=== PATIENT | female | born 1965 | race Caucasian/White ===

== ENCOUNTER 2017-02-21 11:42 | Observation (INO) | payer OTHER ==
[2017-02-21] MEDS ORDERED: NORMAL SALINE 1000 ML 1,000 ML IV ONE (11:59)
--- NOTE | 2017-02-21 12:00 | ER Document Report ---
ED Medical Screen (RME) - General Chief Complaint: Cough Stated Complaint: FEVER/COUGH Time Seen by Provider: 02/21/17 11:59 Notes: Patient is referred from primary doctor's office. Patient had an x-ray at the primary's office which shows bilateral infiltrates. This is patient's fourth episode of pneumonia this year. TRAVEL OUTSIDE OF THE [place] IN LAST 30 DAYS: No - Related Data Allergies/Adverse Reactions: No Known Allergies Allergy (Verified 08/14/14 11:26) Past Medical History - Social History Frequency of alcohol use: None Drug Abuse: None - Past Medical History Cardiac Medical History: Reports: Hx Hypercholesterolemia Neurological Medical History: Reports: Hx Migraine Renal/ Medical History: Denies: Hx Peritoneal Dialysis GI Medical History: Reports: Hx Gastroesophageal Reflux Disease Psychiatric Medical History: Reports: Hx Anxiety Past Surgical History: Reports: Hx Cholecystectomy, Hx Gastric Bypass Surgery - about 1984, Hx Hysterectomy, Hx Orthopedic Surgery - right ankle - Immunizations Hx Diphtheria, Pertussis, Tetanus Vaccination: Yes Physical Exam - Vital signs Vitals: Temp Pulse Resp BP Pulse Ox 98.4 F 110 H 16 110/70 95 02/21/17 11:45 02/21/17 11:45 02/21/17 11:45 02/21/17 11:45 02/21/17 11:45 Course - Vital Signs Vital signs: Temp Pulse Resp BP Pulse Ox 98.4 F 110 H 16 110/70 95 02/21/17 11:45 02/21/17 11:45 02/21/17 11:45 02/21/17 11:45 02/21/17 11:45
[2017-02-21 12:39] LABS: HEMATOCRIT 42.9 % (36.0-47.0); HEMOGLOBIN 14.2 g/dL (12.0-15.5); HGB HCT DIFFERENCE -0.3; MEAN CORPUSCULAR HEMOGLOBIN 29.4 pg (27.0-33.4); MEAN CORPUSCULAR VOLUME 89 fl (80-97); RED BLOOD COUNT 4.82 10^6/uL (3.72-5.28); RED CELL DISTRIBUTION WIDTH 14.4 % (11.5-14.0); WHITE BLOOD COUNT 20.7 10^3/uL (4.0-10.5)
[2017-02-21 12:40] LABS: VENOUS BLOOD BASE EXCESS -2.2 mmol/L; VENOUS BLOOD HCO3 20.2 mmol/L (20-32); VENOUS BLOOD PCO2 29.1 mmHg (35-63); VENOUS BLOOD PH 7.46 (7.30-7.42)
[2017-02-21 12:55] LABS: APPEARANCE,URINE SLIGHTLY-CLOUDY; BILIRUBIN,URINE NEGATIVE (NEGATIVE); GLUCOSE, URINE NEGATIVE (NEGATIVE); KETONES,URINE NEGATIVE (NEGATIVE); LEUKOCYTE ESTERASE,URINE NEGATIVE (NEGATIVE); NITRITE,URINE NEGATIVE (NEGATIVE); PROTEIN,URINE 30 mg/dL (NEGATIVE); URINE SPECIFIC GRAVITY 1.014
[2017-02-21 13:00] LABS: ALANINE AMINOTRANSFERASE 48 U/L (9-52); ALBUMIN 4.2 g/dL (3.5-5.0); ALKALINE PHOSPHATASE 77 U/L (38-126); ANION GAP 15 (5-19); ASPARTATE AMINO TRANSFERASE 58 U/L (14-36); BILIRUBIN,DIRECT 0.4 mg/dL (0.0-0.4); BILIRUBIN,TOTAL 0.7 mg/dL (0.2-1.3); BLOOD UREA NITROGEN 11 mg/dL (7-20); CALCIUM 9.8 mg/dL (8.4-10.2); CARBON DIOXIDE 19 mmol/L (22-30); CHLORIDE 110 mmol/L (98-107); CREATININE RESULT 0.83 mg/dL (0.52-1.25); GLUCOSE 95 mg/dL (75-110); POTASSIUM 4.3 mmol/L (3.6-5.0); SODIUM 143.9 mmol/L (137-145); TOTAL PROTEIN 7.6 g/dL (6.3-8.2)
[2017-02-21 13:10] LABS: BAND NEUTROPHILS % (MANUAL) 6 % (3-5); BASOPHILS % (MANUAL) 0 % (0-2); EOSINOPHILS % (MANUAL) 0 % (0-6); LYMPHOCYTES % (MANUAL) 3 % (13-45); RBC MORPHOLOGY COMMENT NORMO-CYTIC/CHROMIC; TOTAL CELLS COUNTED 100
--- NOTE | 2017-02-21 14:14 | ER Document Report ---
ED Respiratory Problem - General Chief Complaint: Cough Stated Complaint: FEVER/COUGH Time Seen by Provider: 02/21/17 11:59 Notes: Patient patient developed a cough with headache and fever and chills yesterday. She went to see her primary care physician today and had an outpatient chest x -ray done which was read as showing bibasilar infiltrates and pneumonia and she was referred here for lab studies and to be admitted to the hospital. Patient has a history of frequent pneumonias, the most recent being in December. She has been coughing with some phlegm production. Nauseated but not vomiting. No diarrhea. No UTI symptoms. TRAVEL OUTSIDE OF THE [place] IN LAST 30 DAYS: No - Related Data Allergies/Adverse Reactions: No Known Allergies Allergy (Verified 08/14/14 11:26) Home Medications: Current Home Medications Albuterol Sulfate [Proair HFA] 2 puff PO Q4HP PRN 02/21/17 [History] Alprazolam [Xanax] 1 mg PO Q8HP PRN 02/21/17 [History] Amitriptyline HCl [Elavil 150 mg Tablet] 1 tab PO QHS 02/21/17 [History] Divalproex Sodium [Divalproex Sodium ER] 500 mg PO QHS 02/21/17 [History] Escitalopram Oxalate [Lexapro] 20 mg PO DAILY 02/21/17 [History] Levalbuterol Tartrate [Levalbuterol Tartrate Hfa] 1 puff IN Q6HP PRN 02/21/17 [ History] Linaclotide [Linzess] 290 mcg PO Q12 02/21/17 [History] Pantoprazole Sodium [Protonix] 40 mg PO Q12 02/21/17 [History] Promethazine HCl 25 mg PO Q6HP PRN 02/21/17 [History] Simvastatin [Zocor 40 mg Tablet] 40 mg PO QHS 02/21/17 [History] Tizanidine HCl [Zanaflex] 2 mg PO Q8HP PRN 02/21/17 [History] Topiramate [Topamax] 200 mg PO Q12 02/21/17 [History] Tramadol HCl [Ultram 50 mg Tablet] 50 mg PO Q12HP PRN 02/21/17 [History] Past Medical History - Social History Smoking Status: Never Smoker Frequency of alcohol use: None Drug Abuse: None Family History: Reviewed & Not Pertinent Patient has suicidal ideation: No Patient has homicidal ideation: No - Past Medical History Cardiac Medical History: Reports: Hx Hypercholesterolemia Neurological Medical History: Reports: Hx Migraine GI Medical History: Reports: Hx Gastroesophageal Reflux Disease Psychiatric Medical History: Reports: Hx Anxiety Past Surgical History: Reports: Hx Cholecystectomy, Hx Gastric Bypass Surgery - about 1984, Hx Hysterectomy, Hx Orthopedic Surgery - right ankle - Immunizations Hx Diphtheria, Pertussis, Tetanus Vaccination: Yes Hx Pneumococcal Vaccination: 08/14/14 Review of Systems - Review of Systems Notes: REVIEW OF SYSTEMS: CONSTITUTIONAL : Has had fever and chills. See HPI. EENT: Denies eye, ear, nose or mouth or throat pain or other symptoms. CARDIOVASCULAR: Denies chest pain. RESPIRATORY: See HPI. GASTROINTESTINAL: Nauseated. Denies abdominal pain, vomiting, or diarrhea. GENITOURINARY: Denies difficulty or painful urinating, urinary frequency, blood in urine. MUSCULOSKELETAL: Denies back or neck pain. Denies joint pain or swelling. SKIN: Denies rash or skin lesions. NEUROLOGICAL: Denies LOC or altered mental status. Denies headache. Denies sensory loss or motor deficits. ALL OTHER SYSTEMS REVIEWED AND NEGATIVE. Physical Exam - Vital signs Vitals: Temp Pulse Resp BP Pulse Ox 98.4 F 110 H 16 110/70 95 02/21/17 11:45 02/21/17 11:45 02/21/17 11:45 02/21/17 11:45 02/21/17 11:45 Interpretation: Normal - Notes Notes: PHYSICAL EXAMINATION: GENERAL: Well-appearing, in no acute distress. Vital signs essentially normal. Not hypoxic. ENT: oropharynx clear without exudates. Moist mucous membranes. NECK: Normal range of motion, supple. LUNGS: Breath sounds clear and equal bilaterally. HEART: Regular rate and rhythm without murmurs. ABDOMEN: Soft, nontender. No guarding or rebound. BACK: No tenderness throughout entire back. EXTREMITIES: Normal range of motion without pain. Negative Homans bilaterally. NEUROLOGICAL: Normal speech, normal gait. Normal sensory, motor, and reflex exams. Awake, alert, and oriented x3. Cranial nerves normal. PSYCH: Normal mood, normal affect. SKIN: Warm, dry, no rashes. Course - Re-evaluation Re-evalutation: 02/21/17 19:40 Patient discussed with hospitalist on-call and patient will be admitted for IV antibiotics. - Vital Signs Vital signs: Temp Pulse Resp BP Pulse Ox 98.4 F 110 H 16 110/70 95 02/21/17 11:45 02/21/17 11:45 02/21/17 11:45 02/21/17 11:45 02/21/17 11:45 - Laboratory Result Diagrams: 02/21/17 12:15 02/21/17 12:15 Laboratory results interpreted by me: 02/21/17 02/21/17 02/21/17 12:08 12:15 12:15 WBC 20.7 H RDW 14.4 H Seg Neuts % (Manual) 89 H Band Neutrophils % 6 H Lymphocytes % (Manual) 3 L Monocytes % (Manual) 2 L Abs Neuts (Manual) 19.7 H VBG pH VBG pCO2 Chloride 110 H Carbon Dioxide 19 L Lactic Acid AST 58 H Urine Protein 30 H Urine Urobilinogen 2.0 H 02/21/17 02/21/17 12:15 12:15 WBC RDW Seg Neuts % (Manual) Band Neutrophils % Lymphocytes % (Manual) Monocytes % (Manual) Abs Neuts (Manual) VBG pH 7.46 H VBG pCO2 29.1 L Chloride Carbon Dioxide Lactic Acid 2.2 H AST Urine Protein Urine Urobilinogen Discharge - Discharge Clinical Impression: Pneumonia Qualifiers: Pneumonia type: due to unspecified organism Laterality: bilateral Lung location : lower lobe of lung Qualified Code(s): J18.9 - Pneumonia, unspecified organism Condition: Stable Disposition: ADMITTED OBSERVATION Admitting Provider: Hospitalist Unit Admitted: Medical Floor
[2017-02-21] MEDS ORDERED: IPRATROPIUM/ALBUTEROL 0.5-2.5 MG/3 ML AMPUL NEB PRN (14:45)
[2017-02-21] MEDS ORDERED: AZITHROMYCIN 500 MG in DEXTROSE 5%-WATER 250 ML IV ONE (16:00)
--- NOTE | 2017-02-21 16:01 | PDOC H&P ---
History of Present Illness Admission Date/PCP: ALE BEAL MD Patient complains of: Fever and cough History of Present Illness: KIRAN COLE is a 51 year old female with past medical history of morbid obesity , depression, migraine headaches, GERD, dyslipidemia and frequent pneumonia. She presented to her primary care provider's office this morning because of fever which she reports was up to 104 last night and a nonproductive cough. She denies any recent upper respiratory infections or sinus congestion. She states she went to bed early last evening because she did not feel well prior to doing so she took her temperature and was noted to be elevated at 104. She took Tylenol with some resolution of the fever. She denies any productive cough or body aches. This morning she had a low-grade fever and therefore went to see her primary care provider. He did a chest x-ray which showed bibasilar linear infiltrates. Therefore, he referred her to the emergency room for possible admission.She she denies any other symptoms present time. She denies any nausea, vomiting or dysuria. Past Medical History Cardiac Medical History: Reports: Hyperlipidema Pulmonary Medical History: Reports: None EENT Medical History: Reports: None Neurological Medical History: Reports: Migraine Endocrine Medical History: Reports: None Renal/ Medical History: Reports: None GI Medical History: Reports: Gastroesophageal Reflux Disease Musculoskeltal Medical History: Reports: None Skin Medical History: Reports: None Psychiatric Medical History: Reports: None Traumatic Medical History: Reports: None Hematology: Reports: None Infectious Medical History: Reports: None Past Surgical History Past Surgical History: Reports: Cholecystectomy, Gastric Bypass Surgery - about 1984, Hysterectomy, Orthopedic Surgery - right ankle Social History Information Source: Patient Lives with: Spouse/Significant other Smoking Status: Never Smoker Frequency of Alcohol Use: None Hx Recreational Drug Use: No Drugs: None Hx Prescription Drug Abuse: No - Advance Directive Resuscitation Status: Full Code Surrogate healthcare decision maker:: , Fang Family History Family History: CAD, Hypertension Parental Family History Reviewed: Yes Children Family History Reviewed: Yes Sibling(s) Family History Reviewed.: Yes Medication/Allergy Home Medications: Albuterol Sulfate [Albuterol Sulfate 2.5mg/3 mL] 2.5 mg IH PRN PRN 06/13/16 Alprazolam 1 mg PO Q8 06/13/16 Amitriptyline HCl [Elavil 150 mg Tablet] 150 mg PO QHS 06/13/16 Butalb/Acetaminophen/Caffeine [Rjpped-Desqeuvl-Qaft 50-325-40] 2 tab PO Q6HP PRN 06/13/16 Cyanocobalamin (Vitamin B-12) [Vitamin B-12 Inj 1000 Mcg/1 ml Vial] 1,000 mcg IM [id number] 06/13/16 Divalproex Sodium [Divalproex Sodium ER] 500 mg PO DAILY 06/13/16 Ergocalciferol (Vitamin D2) [Vitamin D2] 50,000 units PO [id number] 06/13/16 Escitalopram Oxalate [Lexapro] 20 mg PO DAILY 06/13/16 Esomeprazole Magnesium [Nexium] 40 mg PO DAILY 06/13/16 Estradiol 1 mg PO ASDIR PRN 06/13/16 Levalbuterol Tartrate [Xopenex Hfa] 45 mcg IH PRN PRN 06/13/16 Ondansetron [Ondansetron Odt] 4 mg PO Q4HP PRN MDD 4 06/13/16 Oxycodone HCl/Acetaminophen [Oxycodone-Acetaminophen 5-325] 5 - 325 mg PO Q4HP PRN 06/13/16 Simvastatin [Zocor 40 mg Tablet] 40 mg PO QHS 06/13/16 Topiramate [Topamax] 200 mg PO DAILY 06/13/16 Tramadol HCl [Ultram 50 mg Tablet] 50 mg PO PRN PRN 06/13/16 Amox Tr/Potassium Clavulanate [Augmentin "500" Tablet] 1 tab PO Q8 #20 tablet 06/17/16 Azithromycin [Zithromax 250 mg Tablet] 500 mg PO DAILY #3 tablet 06/17/16 Allergies/Adverse Reactions: No Known Allergies Allergy (Verified 08/14/14 11:26) Review of Systems Constitutional: PRESENT: chills, fatigue, fever(s) Eyes: PRESENT: as per HPI Respiratory: PRESENT: cough Gastrointestinal: ABSENT: abdominal pain, constipation, diarrhea, hematemesis, hematochezia, nausea, vomiting Genitourinary: ABSENT: dysuria, hematuria Musculoskeletal: ABSENT: joint swelling Integumentary: ABSENT: rash, wounds Psychiatric: ABSENT: anxiety, depression, homidical ideation, suicidal ideation Endocrine: ABSENT: cold intolerance, heat intolerance, polydipsia, polyuria Hematologic/Lymphatic: ABSENT: easy bleeding, easy bruising Physical Exam Vital Signs: Temp Pulse Resp BP Pulse Ox 98.4 F 110 H 16 110/70 95 02/21/17 11:45 02/21/17 11:45 02/21/17 11:45 02/21/17 11:45 02/21/17 11:45 Intake & Output 02/20/17 02/21/17 02/22/17 06:59 06:59 06:59 Weight 135.1 kg General appearance: PRESENT: no acute distress, morbidly obese, well-developed, well-nourished Head exam: PRESENT: atraumatic, normocephalic Eye exam: PRESENT: conjunctiva pink, EOMI, PERRLA. ABSENT: scleral icterus Ear exam: PRESENT: normal external ear exam Mouth exam: PRESENT: moist, tongue midline Neck exam: ABSENT: carotid bruit, JVD, lymphadenopathy, thyromegaly Respiratory exam: PRESENT: decreased breath sounds, rhonchi, symmetrical, unlabored. ABSENT: rales, wheezes Cardiovascular exam: PRESENT: RRR. ABSENT: diastolic murmur, rubs, systolic murmur Pulses: PRESENT: normal dorsalis pedis pul Vascular exam: PRESENT: normal capillary refill GI/Abdominal exam: PRESENT: normal bowel sounds, soft. ABSENT: distended, guarding, mass, organolmegaly, rebound, tenderness Rectal exam: PRESENT: deferred Extremities exam: PRESENT: full ROM. ABSENT: calf tenderness, clubbing, pedal edema Musculoskeletal exam: PRESENT: ambulatory, full ROM, normal inspection Neurological exam: PRESENT: alert, awake, oriented to person, oriented to place , oriented to time, oriented to situation, CN II-XII grossly intact. ABSENT: motor sensory deficit Psychiatric exam: PRESENT: appropriate affect, normal mood. ABSENT: homicidal ideation, suicidal ideation Skin exam: PRESENT: abrasion Results Laboratory Results: 02/21/17 12:15 02/21/17 12:15 02/21/17 02/21/17 02/21/17 12:08 12:15 12:15 WBC 20.7 H RBC 4.82 Hgb 14.2 Hct 42.9 MCV 89 MCH 29.4 MCHC 33.0 RDW 14.4 H Plt Count 234 Seg Neutrophils % Not Reportable Lymphocytes % Not Reportable Monocytes % Not Reportable Eosinophils % Not Reportable Basophils % Not Reportable Absolute Neutrophils Not Reportable Absolute Lymphocytes Not Reportable Absolute Monocytes Not Reportable Absolute Eosinophils Not Reportable Absolute Basophils Not Reportable VBG pH VBG pCO2 VBG HCO3 VBG Base Excess Sodium 143.9 Potassium 4.3 Chloride 110 H Carbon Dioxide 19 L Anion Gap 15 BUN 11 Creatinine 0.83 Est GFR ( Amer) > 60 Est GFR (Non-Af Amer) > 60 Glucose 95 Lactic Acid Calcium 9.8 Total Bilirubin 0.7 AST 58 H ALT 48 Alkaline Phosphatase 77 Total Protein 7.6 Albumin 4.2 Urine Color YELLOW Urine Appearance SLIGHTLY-CLOUDY Urine pH 8.0 Ur Specific [place] 1.014 Urine Protein 30 H Urine Glucose (UA) NEGATIVE Urine Ketones NEGATIVE Urine Blood NEGATIVE Urine Nitrite NEGATIVE Ur Leukocyte Esterase NEGATIVE Urine WBC (Auto) 1 Urine RBC (Auto) 1 02/21/17 02/21/17 12:15 12:15 WBC RBC Hgb Hct MCV MCH MCHC RDW Plt Count Seg Neutrophils % Lymphocytes % Monocytes % Eosinophils % Basophils % Absolute Neutrophils Absolute Lymphocytes Absolute Monocytes Absolute Eosinophils Absolute Basophils VBG pH 7.46 H VBG pCO2 29.1 L VBG HCO3 20.2 VBG Base Excess -2.2 Sodium Potassium Chloride Carbon Dioxide Anion Gap BUN Creatinine Est GFR ( Amer) Est GFR (Non-Af Amer) Glucose Lactic Acid 2.2 H Calcium Total Bilirubin AST ALT Alkaline Phosphatase Total Protein Albumin Urine Color Urine Appearance Urine pH Ur Specific [place] Urine Protein Urine Glucose (UA) Urine Ketones Urine Blood Urine Nitrite Ur Leukocyte Esterase Urine WBC (Auto) Urine RBC (Auto) Assessment & Plan - Diagnosis (1) Pneumonia Qualifiers: Pneumonia type: due to unspecified organism Laterality: bilateral Lung location: lower lobe of lung Qualified Code(s): J18.9 - Pneumonia, unspecified organism Is this a current diagnosis for this admission?: Yes Plan: Patient has small linear bibasilar infiltrates and leukocytosis of 20,000. She has no tachypnea, hypoxemia or hypotension. Presently is afebrile with normal blood pressure. (2) Hypercholesteremia Is this a current diagnosis for this admission?: Yes Plan: Continue statin (3) Migraine Is this a current diagnosis for this admission?: No Plan: Patient with history of migraines (4) Morbid obesity with BMI of 45.0-49.9, adult Is this a current diagnosis for this admission?: Yes Plan: Counseled - Time Time Spent: 50 to 70 Minutes Critical Time spent with patient: 25-34 minutes Medications reviewed and adjusted accordingly: Yes Anticipated discharge: Home with Homehealth - Inpatient Certification Based on my medical assessment, after consideration of the patient's comorbidities, presenting symptoms, or acuity I expect that the services needed warrant INPATIENT care.: Yes I certify that my determination is in accordance with my understanding of Medicare's requirements for reasonable and necessary INPATIENT services [42 CFR 412.3e].: Yes
[2017-02-21] MEDS: IPRATROPIUM/ALBUTEROL 0.5-2.5 MG/3 ML AMPUL NEB SCH ×2 (16:44→23:50)
[2017-02-21] MEDS: NORMAL SALINE 1000 ML 1,000 ML IV PRN ×2 (16:49→18:29)
[2017-02-21] MEDS ORDERED: CEFTRIAXONE 1 GM/D5W RTU 1 GM/50 ML RTUPB IV SCH (18:00)
[2017-02-21] MEDS: ACETAMINOPHEN 325 MG TABLET PO PRN (19:11)
[2017-02-21] MEDS: GUAIFENESIN 600 MG TABLET.SA PO SCH (21:28)
[2017-02-21] MEDS: FAMOTIDINE 20 MG TABLET PO SCH (21:29)
[2017-02-21] MEDS: HEPARIN SOD (PORCINE) 5,000 UNIT/ML 1 ML SYRINGE SUBCUT SCH (21:29)
[2017-02-21] MEDS ORDERED: AMITRIPTYLINE HCL 75 MG TABLET PO SCH (22:00)
[2017-02-21] MEDS ORDERED: DIVALPROEX SODIUM 500 MG TAB.SR.24H PO SCH (22:00)
[2017-02-21] MEDS ORDERED: SIMVASTATIN 40 MG TABLET PO SCH (22:00)
[2017-02-21] MEDS ORDERED: AMITRIPTYLINE HCL 75 MG TABLET ONE (22:44)
[2017-02-22] MEDS: ACETAMINOPHEN 325 MG TABLET PO PRN (02:27)
[2017-02-22] MEDS ORDERED: KETOROLAC TROMETHAMINE INJ/PF 30 MG/1 ML SDV IV ONE (03:30)
[2017-02-22 05:59] LABS: ABSOLUTE EOSINOPHILS # (AUTO) 0.1 10^3/uL (0.0-0.6); ABSOLUTE LYMPHOCYTES (AUTO) 1.7 10^3/uL (0.5-4.7); ABSOLUTE MONOCYTES (AUTO) 0.6 10^3/uL (0.1-1.4); ABSOLUTE NEUT (AUTO) 10.4 10^3/uL (1.7-8.2); BASOPHILS % (AUTO) 0.3 % (0-2); HEMATOCRIT 35.4 % (36.0-47.0); HGB HCT DIFFERENCE 0.3; LYMPHOCYTES % (AUTO) 13.2 % (13-45); MEAN CORPUSCULAR HEMOGLOBIN 30.8 pg (27.0-33.4); MEAN CORPUSCULAR HGB CONC 33.7 g/dL (32.0-36.0); MEAN CORPUSCULAR VOLUME 91 fl (80-97); MONOCYTES % (AUTO) 4.4 % (3-13); RED BLOOD COUNT 3.87 10^6/uL (3.72-5.28); RED CELL DISTRIBUTION WIDTH 14.6 % (11.5-14.0); SEGMENTED NEUTROPHILS % (AUTO) 81.1 % (42-78); WHITE BLOOD COUNT 12.8 10^3/uL (4.0-10.5)
[2017-02-22 06:03] LABS: ANION GAP 12 (5-19); BLOOD UREA NITROGEN 12 mg/dL (7-20); CALCIUM 8.8 mg/dL (8.4-10.2); CARBON DIOXIDE 17 mmol/L (22-30); CHLORIDE 116 mmol/L (98-107); CREATININE RESULT 0.65 mg/dL (0.52-1.25); GLUCOSE 91 mg/dL (75-110); POTASSIUM 3.8 mmol/L (3.6-5.0); SODIUM 145.4 mmol/L (137-145)
[2017-02-22 06:04] LABS: HEMOGLOBIN 11.9 g/dL (12.0-15.5)
[2017-02-22] MEDS: HEPARIN SOD (PORCINE) 5,000 UNIT/ML 1 ML SYRINGE SUBCUT SCH ×2 (06:17→13:14)
[2017-02-22] MEDS ORDERED: PROMETHAZINE HCL 25 MG TABLET PO PRN (06:57)
[2017-02-22] MEDS ORDERED: (PENDING PHARMACY ID) (Levalbuterol Tartrate [Levalbuterol Tartrate Hfa] 1 PUFF) IN PRN (06:57)
[2017-02-22] MEDS ORDERED: TRAMADOL HCL 50 MG TABLET PO PRN (06:57)
[2017-02-22] MEDS ORDERED: (PENDING PHARMACY ID) (Tizanidine Hcl [Zanaflex] 2 MG) PO PRN (06:57)
[2017-02-22] MEDS ORDERED: TIZANIDINE HCL 4 MG TABLET PO PRN (07:21)
[2017-02-22] MEDS ORDERED: ALPRAZOLAM 0.5 MG TABLET PO PRN (07:26)
[2017-02-22] MEDS: IPRATROPIUM/ALBUTEROL 0.5-2.5 MG/3 ML AMPUL NEB SCH (08:44)
--- NOTE | 2017-02-22 09:13 | RADIOLOGY REPORT (SQ) ---
EXAM DESCRIPTION: CHEST PA/LAT COMPLETED DATE/TIME: 02/22/2017 8:43 am REASON FOR STUDY: cough, congestion COMPARISON: CTA chest 06/13/2016 Two-view chest 06/15/2016, 06/13/2016 EXAM PARAMETERS: NUMBER OF VIEWS: two views TECHNIQUE: Digital Frontal and Lateral radiographic views of the chest acquired. RADIATION DOSE: NA LIMITATIONS: none FINDINGS: LUNGS AND PLEURA: Patchy airspace disease in the left mid and lower lung. Right lung well inflated and clear. No pleural effusions. No pneumothorax. MEDIASTINUM AND HILAR STRUCTURES: No masses or contour abnormalities. HEART AND VASCULAR STRUCTURES: Heart normal size. No evidence for failure. BONES: No acute findings. HARDWARE: None in the chest. OTHER: No other significant finding. IMPRESSION: Patchy airspace disease in the left mid and lower lung, worrisome for acute airspace dis ease TECHNICAL DOCUMENTATION: JOB ID: [id number] [employer]- All Rights Reserved
[2017-02-22] MEDS ORDERED: LANSOPRAZOLE 30 MG TAB.RAP.DR PO SCH (10:00)
[2017-02-22] MEDS ORDERED: TOPIRAMATE 100 MG TABLET PO SCH (10:00)
[2017-02-22] MEDS ORDERED: ESCITALOPRAM OXALATE 10 MG TABLET PO SCH (10:00)
[2017-02-22] MEDS ORDERED: AZITHROMYCIN 500 MG in DEXTROSE 5%-WATER 250 ML IV SCH (10:00)
[2017-02-22] MEDS ORDERED: (PENDING PHARMACY ID) (Topiramate [Topamax] 200 MG) PO SCH (10:00)
[2017-02-22] MEDS ORDERED: SUMATRIPTAN SUCCINATE 100 MG TABLET PO PRN (10:18)
[2017-02-22] MEDS: FAMOTIDINE 20 MG TABLET PO SCH (10:22)
[2017-02-22] MEDS: GUAIFENESIN 600 MG TABLET.SA PO SCH (10:22)
[2017-02-22] MEDS ORDERED: CEFTRIAXONE 1 GM/D5W RTU 1 GM/50 ML RTUPB IV ONE (14:00)
[2017-02-22 14:19] VITALS: BP 103/46
--- NOTE | 2017-02-22 14:33 | PDOC DISCHARGE SUMMARY ---
General - Admit/Disc Date/PCP Admission Date/Primary Care Provider: 02/21/17 14:45 ALE BEAL MD Discharge Date: 02/22/17 - Discharge Diagnosis (1) Pneumonia Is this a current diagnosis for this admission?: Yes Summary: Continue inhaler, mucinex and antibiotics as directed (2) Hypercholesteremia Is this a current diagnosis for this admission?: Yes Summary: Continue statin (3) Migraine Is this a current diagnosis for this admission?: No Summary: Continue home medications as directed (4) Morbid obesity with BMI of 45.0-49.9, adult Is this a current diagnosis for this admission?: Yes Summary: Counseled - Additional Information Resuscitation Status: Full Code Discharge Diet: Regular Discharge Activity: Activity As Tolerated, Balance Activity w/Rest Home Medications: Albuterol Sulfate [Proair HFA] 2 puff PO Q4HP PRN 02/21/17 Alprazolam [Xanax] 1 mg PO Q8HP PRN 02/21/17 Amitriptyline HCl [Elavil 150 mg Tablet] 1 tab PO QHS 02/21/17 Divalproex Sodium [Divalproex Sodium ER] 500 mg PO QHS 02/21/17 Escitalopram Oxalate [Lexapro] 20 mg PO DAILY 02/21/17 Levalbuterol Tartrate [Levalbuterol Tartrate Hfa] 1 puff IN Q6HP PRN 02/21/17 Linaclotide [Linzess] 290 mcg PO Q12 02/21/17 Pantoprazole Sodium [Protonix] 40 mg PO Q12 02/21/17 Promethazine HCl 25 mg PO Q6HP PRN 02/21/17 Simvastatin [Zocor 40 mg Tablet] 40 mg PO QHS 02/21/17 Tizanidine HCl [Zanaflex] 2 mg PO Q8HP PRN 02/21/17 Topiramate [Topamax] 200 mg PO Q12 02/21/17 Tramadol HCl [Ultram 50 mg Tablet] 50 mg PO Q12HP PRN 02/21/17 Acetaminophen [Tylenol 325 mg Tablet] 650 mg PO Q4HP PRN tablet 02/22/17 Azithromycin 250 mg PO DAILY #7 tablet 02/22/17 Cefuroxime Axetil [Ceftin 500 mg Tablet] 500 mg PO BID #18 tablet 02/22/17 Guaifenesin [Mucinex Sr 600 mg Tablet.sa] 600 mg PO Q12 tablet.sa 02/22/17 Sumatriptan Succinate [Imitrex 100 mg Tablet] 100 mg PO DAILYP PRN tablet 02/22 History of Present Illness Patient complains of: Cough and fever History of Present Illness: KIRAN COLE is a 51 year old female with past medical history of morbid obesity , depression, migraine headaches, GERD, dyslipidemia and frequent pneumonia. She presented to her primary care provider's office this morning because of fever which she reports was up to 104 last night and a nonproductive cough. She denies any recent upper respiratory infections or sinus congestion. She states she went to bed early last evening because she did not feel well prior to doing so she took her temperature and was noted to be elevated at 104. She took Tylenol with some resolution of the fever. She denies any productive cough or body aches. This morning she had a low-grade fever and therefore went to see her primary care provider. He did a chest x-ray which showed bibasilar linear infiltrates. Therefore, he referred her to the emergency room for possible admission.She she denies any other symptoms present time. She denies any nausea, vomiting or dysuria. Hospital Course Hospital Course: Patient was admitted as observation status on telemetry. She had no spiking fevers overnight. She did have some productive cough. She denies any shortness of breath, dyspnea or chest pain. Icing nausea, vomiting, abdominal pain. She denies any dysuria. She did have intermittent headache overnight. This was typical of her migraine type headaches. Remaining review of systems is negative. Physical Exam Vital Signs: Temp Pulse Resp BP Pulse Ox 97.9 F 92 18 108/72 98 02/22/17 11:37 02/22/17 11:37 02/22/17 11:37 02/22/17 11:37 02/22/17 11:37 Intake & Output 02/21/17 02/22/17 02/23/17 06:59 06:59 06:59 Intake Total 2004 Balance 2004 Weight 138.9 kg General appearance: PRESENT: no acute distress, morbidly obese, well-developed, well-nourished Head exam: PRESENT: atraumatic, normocephalic Eye exam: PRESENT: conjunctiva pink, EOMI, PERRLA. ABSENT: scleral icterus Ear exam: PRESENT: normal external ear exam Mouth exam: PRESENT: moist, tongue midline Neck exam: ABSENT: carotid bruit, JVD, lymphadenopathy, thyromegaly Respiratory exam: PRESENT: rhonchi, symmetrical, unlabored, other - intermittent left lower lobe. ABSENT: rales, wheezes Cardiovascular exam: PRESENT: RRR. ABSENT: diastolic murmur, rubs, systolic murmur Pulses: PRESENT: normal dorsalis pedis pul GI/Abdominal exam: PRESENT: normal bowel sounds, soft. ABSENT: distended, guarding, mass, organolmegaly, rebound, tenderness Rectal exam: PRESENT: deferred Extremities exam: PRESENT: full ROM. ABSENT: calf tenderness, clubbing, pedal edema Neurological exam: PRESENT: alert, awake, oriented to person, oriented to place , oriented to time, oriented to situation, CN II-XII grossly intact. ABSENT: motor sensory deficit Psychiatric exam: PRESENT: appropriate affect, normal mood. ABSENT: homicidal ideation, suicidal ideation Skin exam: PRESENT: dry, intact, warm. ABSENT: cyanosis, rash Results Laboratory Results: 02/22/17 04:53 02/22/17 04:53 02/21/17 02/22/17 02/22/17 16:59 04:53 04:53 WBC 12.8 H RBC 3.87 Hgb 11.9 L D Hct 35.4 L MCV 91 MCH 30.8 MCHC 33.7 RDW 14.6 H Plt Count 160 Seg Neutrophils % 81.1 H Lymphocytes % 13.2 Monocytes % 4.4 Eosinophils % 1.0 Basophils % 0.3 Absolute Neutrophils 10.4 H Absolute Lymphocytes 1.7 Absolute Monocytes 0.6 Absolute Eosinophils 0.1 Absolute Basophils 0.0 Sodium 145.4 H Potassium 3.8 Chloride 116 H Carbon Dioxide 17 L Anion Gap 12 BUN 12 Creatinine 0.65 Est GFR ( Amer) > 60 Est GFR (Non-Af Amer) > 60 Glucose 91 Lactic Acid 2.6 H Calcium 8.8 Impressions: Chest X-Ray 02/22/17 00:00 IMPRESSION: Patchy airspace disease in the left mid and lower lung, worrisome for acute airspace disease Qualifiers PATEINT BEING DISCHARGED WITH ANY OF THE FOLLOWING DIAGNOSIS?: No Plan Discharge Plan: Home Time Spent: Less than 30 Minutes
[2017-02-22] MEDS ORDERED: CEFTRIAXONE 1 GM/D5W RTU 1 GM/50 ML RTUPB IV SCH (18:00)
== END 2017-02-22 15:37 | disposition home or self-care (01) ==
LOC: ER 11:42 → EH 14:45 → 4S 20:20
PROVIDERS: ADMIT Family Medicine; ATTEND Family Medicine
PROC: 3E0F7GC Introduction of Other Therapeutic Substance into Respiratory Tract, Via Natural or Artificial Opening (ICD-10-PCS; principal; 2017-02-21)
DX: J18.1 Lobar pneumonia, unspecified organism (principal); E78.00 Pure hypercholesterolemia, unspecified; G43.909 Migraine, unspecified, not intractable, without status migrainosus; E66.01 Morbid (severe) obesity due to excess calories; Z68.42 Body mass index [BMI] 45.0-49.9, adult; K21.9 Gastro-esophageal reflux disease without esophagitis; Z79.899 Other long term (current) drug therapy; Z87.01 Personal history of pneumonia (recurrent); Z90.49 Acquired absence of other specified parts of digestive tract; Z98.84 Bariatric surgery status; Z90.710 Acquired absence of both cervix and uterus; Z82.49 Family history of ischemic heart disease and other diseases of the circulatory system
CPT/HCPCS: 94640 ×3; 99284; 96361; 96365; 36415 ×2; 87040; 87086; 82962; 85025 ×2; 85610; 87088; 80048; 80053; 81001; 82803; 83605; 71020; 94799; G0378 ×3; J3490 ×3; J1644 ×2; J1885; J7060 ×2; J7030; J0456 ×2; J0696 ×2; J7620 ×2

== ENCOUNTER 2017-07-01 10:36 | Emergency (ER) | payer OTHER ==
[2017-07-01 10:49] VITALS: BP 137/79
[2017-07-01] MEDS ORDERED: IPRATROPIUM/ALBUTEROL 0.5-2.5 MG/3 ML AMPUL NEB ONE (11:39)
[2017-07-01] MEDS ORDERED: LEVOFLOXACIN 750 MG/D5W RTU 750 MG/150 ML RTUPB IV ONE (11:39)
[2017-07-01] MEDS ORDERED: BENZONATATE 100 MG CAPSULE PO ONE (11:41)
[2017-07-01] MEDS ORDERED: ACETAMINOPHEN 325 MG TABLET ONE (13:15)
[2017-07-02 02:39] LABS: ABSOLUTE EOSINOPHILS # (AUTO) 0.2 10^3/uL (0.0-0.6); ABSOLUTE LYMPHOCYTES (AUTO) 0.9 10^3/uL (0.5-4.7); ABSOLUTE MONOCYTES (AUTO) 0.5 10^3/uL (0.1-1.4); ABSOLUTE NEUT (AUTO) 6.2 10^3/uL (1.7-8.2); BASOPHILS % (AUTO) 0.6 % (0-2); EOSINOPHILS % (AUTO) 2.1 % (0-6); HEMATOCRIT 42.5 % (36.0-47.0); HEMOGLOBIN 14.1 g/dL (12.0-15.5); MEAN CORPUSCULAR HEMOGLOBIN 29.1 pg (27.0-33.4); MEAN CORPUSCULAR HGB CONC 33.1 g/dL (32.0-36.0); MEAN CORPUSCULAR VOLUME 88 fl (80-97); MONOCYTES % (AUTO) 6.1 % (3-13); PLATELET COUNT 185 10^3/uL (150-450); RED BLOOD COUNT 4.83 10^6/uL (3.72-5.28); RED CELL DISTRIBUTION WIDTH 14.5 % (11.5-14.0); SEGMENTED NEUTROPHILS % (AUTO) 80.2 % (42-78); TOTAL CELLS COUNTED % (AUTO) 100 %; WHITE BLOOD COUNT 7.7 10^3/uL (4.0-10.5)
[2017-07-02 06:11] LABS: A TYPE INFLUENZA AG NEGATIVE (NEGATIVE); B INFLUENZA AG NEGATIVE (NEGATIVE)
--- NOTE | 2017-07-02 09:59 | RADIOLOGY REPORT (SQ) ---
EXAM DESCRIPTION: CHEST PA/LAT COMPLETED DATE/TIME: 07/02/2017 12:52 am REASON FOR STUDY: CHEST CONGESTION, SOB COMPARISON: 04/22/2017 TECHNIQUE: Frontal and lateral radiographic views of the chest acquired. NUMBER OF VIEWS: Two view. LIMITATIONS: None. FINDINGS: LUNGS AND PLEURA: No evidence of consolidating infiltrate , pleural effusion , or pn eumothorax. MEDIASTINUM AND HILAR STRUCTURES: No masses or contour abnormalities. HEART AND VASCULATURE: Heart stable in size. No evidence for failure. BONY STRUCTURES: No acute findings. HARDWARE: None. OTHER: No other significant finding. IMPRESSION: NO ACUTE CARDIOPULMONARY PROCESS. NO SIGNIFICANT CHANGE FROM PRIOR STUDY. TECHNICAL DOCUMENTATION: JOB ID: [id number]
[2017-07-02 12:31] LABS: ALBUMIN 4.4 g/dL (3.5-5.0); ALKALINE PHOSPHATASE 78 U/L (38-126); ANION GAP 12 (5-19); ASPARTATE AMINO TRANSFERASE 29 U/L (14-36); BLOOD UREA NITROGEN 7 mg/dL (7-20); CALCIUM 9.8 mg/dL (8.4-10.2); CARBON DIOXIDE 21 mmol/L (22-30); CHLORIDE 111 mmol/L (98-107); GLUCOSE 89 mg/dL (75-110); POTASSIUM 4.7 mmol/L (3.6-5.0)
[2017-07-02 12:32] LABS: ALANINE AMINOTRANSFERASE 32 U/L (9-52); BILIRUBIN,DIRECT 0.3 mg/dL (0.0-0.4); BILIRUBIN,TOTAL 0.3 mg/dL (0.2-1.3); TOTAL PROTEIN 7.6 g/dL (6.3-8.2)
== END 2017-07-01 15:30 | disposition home or self-care (01) ==
LOC: ER 10:36
DX: R06.02 Shortness of breath (principal); R05 Cough; R50.9 Fever, unspecified; R11.10 Vomiting, unspecified
CPT/HCPCS: 36415; 71046; 80053; 85025; 87804; 94640; 96365; 99284

== ENCOUNTER → 2017-08-23 | Outpatient (CLI) | payer OTHER ==
[2017-08-23 13:57] LABS: HEMATOCRIT 43.7 % (36.0-47.0); HEMOGLOBIN 14.3 g/dL (12.0-15.5); MEAN CORPUSCULAR HEMOGLOBIN 28.8 pg (27.0-33.4); MEAN CORPUSCULAR HGB CONC 32.7 g/dL (32.0-36.0); MEAN CORPUSCULAR VOLUME 88 fl (80-97); PLATELET COUNT 284 10^3/uL (150-450); RED BLOOD COUNT 4.95 10^6/uL (3.72-5.28); RED CELL DISTRIBUTION WIDTH 14.6 % (11.5-14.0); WHITE BLOOD COUNT 25.9 10^3/uL (4.0-10.5)
[2017-08-23 14:09] LABS: ALANINE AMINOTRANSFERASE 39 U/L (9-52); ALBUMIN 4.3 g/dL (3.5-5.0); ALKALINE PHOSPHATASE 77 U/L (38-126); ANION GAP 14 (5-19); ASPARTATE AMINO TRANSFERASE 14 U/L (14-36); BILIRUBIN,DIRECT 0.4 mg/dL (0.0-0.4); BILIRUBIN,TOTAL 0.4 mg/dL (0.2-1.3); BLOOD UREA NITROGEN 13 mg/dL (7-20); C-REACTIVE PROTEIN 28.5 mg/L (<10.0); CALCIUM 8.5 mg/dL (8.4-10.2); CARBON DIOXIDE 18 mmol/L (22-30); CHLORIDE 112 mmol/L (98-107); GLUCOSE 74 mg/dL (75-110); POTASSIUM 3.6 mmol/L (3.6-5.0); SODIUM 144.1 mmol/L (137-145); TOTAL PROTEIN 7.6 g/dL (6.3-8.2); URIC ACID 4.4 mg/dL (2.5-7.5)
[2017-08-23 14:33] LABS: ABSOLUTE LYMPHOCYTES# (MANUAL) 3.9 10^3/uL (0.5-4.7); ABSOLUTE NEUTROPHILS# (MANUAL) 20.7 10^3/uL (1.7-8.2); BASOPHILS % (MANUAL) 0 % (0-2); EOSINOPHILS % (MANUAL) 1 % (0-6); LYMPHOCYTES % (MANUAL) 14 % (13-45); MONOCYTES % (MANUAL) 4 % (3-13); PLATELET COMMENT ADEQUATE; RBC MORPHOLOGY COMMENT NORMO-CYTIC/CHROMIC; SEGMENTED NEUTROPHILS % (MAN) 80 % (42-78); TOTAL CELLS COUNTED 100; TOXIC GRANULATION SLIGHT; TOXIC VACUOLATION PRESENT
[2017-08-23 14:35] LABS: ERYTHROCYTE SEDIMENTATION RATE 8 mm/hr (0-30)
== END ==
LOC: OD 12:40
PROVIDERS: ATTEND Physician Assistant
DX: I10 Essential (primary) hypertension (principal)
CPT/HCPCS: 36415; 80053; 84550; 85025; 85652; 86038; 86140; 86430

== ENCOUNTER 2017-11-20 05:48 | Emergency (ER) | payer OTHER ==
--- NOTE | 2017-11-20 06:21 | ER Document Report ---
ED General - General Mode of Arrival: Ambulatory Information source: Patient TRAVEL OUTSIDE OF THE [place] IN LAST 30 DAYS: No <CAITY DICKINSON - Last Filed: 11/20/17 07:12> <DAIANA THORNE - Last Filed: 11/20/17 09:19> - General Chief Complaint: Cough Stated Complaint: COUGH Time Seen by Provider: 11/20/17 06:09 Notes: 52 y.o female with a PMHx of morbid obesity, depression, migraine headaches, GERD, chronic constipation, asthma, chronic bronchitis and reoccurring pneumonia. Pt presents to the ED with cough since 11/13/17. She reports that she has received a prescription for cough medication and a steroid for her cough but is without any relief. She states that her cough is productive of green sputum. She notes some pain with cough and some rhinorrhea. She denies any SOB due to cough. Pt denies any Hx of COPD. (CAITY DICKINSON) - Related Data Allergies/Adverse Reactions: No Known Allergies Allergy (Verified 11/20/17 07:16) Past Medical History - General Information source: Patient - Social History Smoking Status: Never Smoker Cigarette use (# per day): No Chew tobacco use (# tins/day): No Smoking Education Provided: No Family History: CAD, Hypertension - Past Medical History Cardiac Medical History: Reports: Hx Hypercholesterolemia Neurological Medical History: Reports: Hx Migraine Renal/ Medical History: Denies: Hx Peritoneal Dialysis GI Medical History: Reports: Hx Gastroesophageal Reflux Disease Psychiatric Medical History: Reports: Hx Anxiety, Hx Depression Past Surgical History: Reports: Hx Cholecystectomy, Hx Gastric Bypass Surgery - about 1984, Hx Hysterectomy, Hx Orthopedic Surgery - right ankle - Immunizations Hx Diphtheria, Pertussis, Tetanus Vaccination: Yes Hx Pneumococcal Vaccination: 04/25/16 <CAITY DICKINSON - Last Filed: 11/20/17 07:12> Review of Systems - Review of Systems Constitutional: No symptoms reported EENT: See HPI, Nose discharge Cardiovascular: No symptoms reported Respiratory: See HPI, Cough - with some pain with cough, Sputum - green. denies : Short of breath Gastrointestinal: No symptoms reported Genitourinary: No symptoms reported Female Genitourinary: No symptoms reported Musculoskeletal: No symptoms reported Skin: No symptoms reported Hematologic/Lymphatic: No symptoms reported Neurological/Psychological: No symptoms reported -: Yes All other systems reviewed and negative <CAITY DICKINSON - Last Filed: 11/20/17 07:12> Physical Exam <CAITY DICKINSON - Last Filed: 11/20/17 07:12> <DAIANA THORNE - Last Filed: 11/20/17 09:19> - Vital signs Vitals: Temp Pulse Resp BP Pulse Ox 100.1 F 133 H 20 142/76 H 96 11/20/17 05:56 11/20/17 05:56 11/20/17 05:56 11/20/17 05:56 11/20/17 05:56 - Notes Notes: Physical Exam: General: Alert, appears well. HEENT: Normocephalic. Atraumatic. PERRL. Extraocular movements intact. Oropharynx clear. Mucous membranes extremely dry, teeth are dry. Neck: Supple. Non-tender, no bruise to neck. Respiratory: No respiratory distress. Equal breath sounds bilaterally. Bronchitic cough, faint wheeze with cough. Cardiovascular: tachycardic rate of 124bpm and regular rhythm. Abdominal: Obese. Non-tender. No distension. Normal Bowel Sounds. Back: Non-tender. No deformity or step off. Extremities: Moves all four extremities. Upper extremities: Normal inspection. Normal ROM. Lower extremities: Normal inspection. No edema. Normal ROM. Neurological: Normal cognition. AAOx3. Normal speech. (ALOKCIATY) Course - Laboratory Result Diagrams: 11/20/17 07:45 11/20/17 07:45 - EKG Interpretation by Ks EKG shows normal: Sinus rhythm, Bagley, Intervals, QRS Complexes. abnormal: ST-T Waves - Lateral T abnormalities Rate: Tachycardia - 121 Bagley/QRS: LAHB/LAFB When compared to previous EKG there are: Changes noted <DAIANA THORNE - Last Filed: 11/20/17 09:19> - Vital Signs Vital signs: Temp Pulse Resp BP Pulse Ox 102.0 F H 133 H 23 H 133/43 H 96 11/20/17 07:30 11/20/17 05:56 11/20/17 08:31 11/20/17 07:01 11/20/17 08:31 - Laboratory Laboratory results interpreted by me: 11/20/17 11/20/17 11/20/17 06:45 07:45 07:45 WBC 12.6 H RDW 14.4 H Seg Neutrophils % 86.2 H Lymphocytes % 8.0 L Absolute Neutrophils 10.9 H Sodium 151.8 H Chloride 114 H Urine Urobilinogen 2.0 H Discharge <CAITY DICKINSON - Last Filed: 11/20/17 07:12> <DAIANA THORNE - Last Filed: 11/20/17 09:19> - Discharge Clinical Impression: Hypernatremia, Dehydration, Acute exacerbation of chronic bronchitis Pneumonia Qualifiers: Pneumonia type: due to unspecified organism Laterality: left Lung location: lower lobe of lung Qualified Code(s): J18.1 - Lobar pneumonia, unspecified organism Condition: Stable Disposition: HOME, SELF-CARE Additional Instructions: Pneumonia: Your examination indicates that you have pneumonia. This is an infection of the lung tissue, usually caused by bacteria or a virus. Symptoms include cough, fever, shaking chills, chest pain, shortness of breath, and coughing up bloody sputum. Treatment for bacterial pneumonia includes rest, antibiotics for 10 to 14 days, increasing your clear liquid intake, a cool mist humidifier at your bedside, and fever medication. Often, a repeat chest X-ray is performed in a few weeks--even if you feel better--to ascertain whether the infection has completely resolved and no underlying lung problem is present. You should call the physician if you develop persistent vomiting, high fever that does not respond to fever medication, increasing shortness of breath , confusion, or lethargy. Also, failure to improve within two to three days is an indication for re-examination. Bronchitis You have acute bronchitis. This disease is an infection or inflammation of the air passageways in your lungs. Symptoms usually include cough, low grade fever, shortness of breath, and wheezing. The cough usually persists for a couple of weeks. Most cases of bronchitis get better without antibiotics. We prescribe antibiotics when we believe bacteria are damaging your airways, or if there's high risk the bronchitis will worsen into pneumonia. Increase your fluid intake. A cool mist humidifier may make your lungs more comfortable. An expectorant (cough medicine that loosens phlegm) can help. If you smoke, STOP!!! Recovery from bronchitis can be somewhat slow, but you should see improvement within a day or two. Repeated episodes of bronchitis may result in lung damage -- for example, chronic bronchitis, recurrent pneumonias, or emphysema. Call the doctor if you develop increasing fever, shortness of breath, chest pain, bloody sputum, or otherwise worsen. If you have not improved at all after several days, contact the physician. Start the azithromycin antibiotic tomorrow. Start the prednisone as prescribed today. Drink plenty of fluids, especially water. Rest. Follow-up with your doctor this week for recheck. RETURN TO THE EMERGENCY ROOM IF ANY NEW OR WORSENING SYMPTOMS. Prescriptions: Azithromycin [Zithromax 250 mg Tablet] 250 mg PO DAILY #4 tablet Prednisone [Deltasone 10 mg Tablet] 10 mg PO ASDIR PRN #27 tablet PRN Reason: Scribe Attestation: 11/20/17 07:42 I personally performed the services described in the documentation, reviewed and edited the documentation which was dictated to the scribe in my presence, and it accurately records my words and actions. (DAIANA THORNE) [facility] Documentation - Scribe Written by Kasandra:: Kasandra Justin [id number] 11/20/17 acting as scribe for :: Rohini <CAITY DICKINSON - Last Filed: 11/20/17 07:12>
[2017-11-20] MEDS ORDERED: NORMAL SALINE 1000 ML 1,000 ML IV ONE ×2 (06:31→07:43)
[2017-11-20] MEDS ORDERED: METHYLPREDNISOLONE INJ 125 MG/2 ML SDV IV ONE (06:31)
[2017-11-20] MEDS ORDERED: ACETAMINOPHEN 325 MG TABLET PO ONE (06:34)
--- NOTE | 2017-11-20 07:18 | RADIOLOGY REPORT (SQ) ---
EXAM DESCRIPTION: 2 views of the chest CLINICAL HISTORY: Fever, chills, productive cough ?2 weeks COMPARISON: 07/01/2017 FINDINGS: Frontal and lateral views of the chest. The cardiomediastinal silhouette has normal size and contour. Left basilar patchy opacities. Leads overlie the chest. No pneumothorax or pleural effusion. No displaced rib fractures identified. Upper abdominal soft tissues are unremarkable. IMPRESSION: 1. Patchy left basilar opacities likely represent developing pneumonia. Continued radiographic follow-up to resolution recommended.
[2017-11-20 08:27] LABS: ABSOLUTE EOSINOPHILS # (AUTO) 0.2 10^3/uL (0.0-0.6); ABSOLUTE MONOCYTES (AUTO) 0.5 10^3/uL (0.1-1.4); ABSOLUTE NEUT (AUTO) 10.9 10^3/uL (1.7-8.2); BASOPHILS % (AUTO) 0.3 % (0-2); EOSINOPHILS % (AUTO) 1.6 % (0-6); HEMATOCRIT 39.6 % (36.0-47.0); HEMOGLOBIN 13.2 g/dL (12.0-15.5); MEAN CORPUSCULAR HEMOGLOBIN 30.3 pg (27.0-33.4); MEAN CORPUSCULAR HGB CONC 33.3 g/dL (32.0-36.0); MEAN CORPUSCULAR VOLUME 91 fl (80-97); MONOCYTES % (AUTO) 3.9 % (3-13); PLATELET COUNT 214 10^3/uL (150-450); RED BLOOD COUNT 4.36 10^6/uL (3.72-5.28); RED CELL DISTRIBUTION WIDTH 14.4 % (11.5-14.0); SEGMENTED NEUTROPHILS % (AUTO) 86.2 % (42-78); TOTAL CELLS COUNTED % (AUTO) 100 %; WHITE BLOOD COUNT 12.6 10^3/uL (4.0-10.5)
[2017-11-20 08:34] LABS: APPEARANCE,URINE CLEAR; BILIRUBIN,URINE NEGATIVE (NEGATIVE); COLOR,URINE YELLOW; GLUCOSE, URINE NEGATIVE (NEGATIVE); KETONES,URINE NEGATIVE (NEGATIVE); LEUKOCYTE ESTERASE,URINE NEGATIVE (NEGATIVE); NITRITE,URINE NEGATIVE (NEGATIVE); PROTEIN,URINE NEGATIVE (NEGATIVE)
[2017-11-20 08:42] LABS: ALANINE AMINOTRANSFERASE 23 U/L (9-52); ALBUMIN 3.7 g/dL (3.5-5.0); ALKALINE PHOSPHATASE 73 U/L (38-126); ANION GAP 15 (5-19); ASPARTATE AMINO TRANSFERASE 21 U/L (14-36); BILIRUBIN,DIRECT 0.3 mg/dL (0.0-0.4); BILIRUBIN,TOTAL 0.3 mg/dL (0.2-1.3); BLOOD UREA NITROGEN 9 mg/dL (7-20); CALCIUM 9.2 mg/dL (8.4-10.2); CARBON DIOXIDE 23 mmol/L (22-30); CHLORIDE 114 mmol/L (98-107); CREATINE KINASE 55 U/L (30-135); GLUCOSE 82 mg/dL (75-110); SODIUM 151.8 mmol/L (137-145); TOTAL PROTEIN 6.8 g/dL (6.3-8.2)
[2017-11-20] MEDS ORDERED: AZITHROMYCIN INJ 500 MG VIAL IV ONE (08:49)
--- NOTE | 2017-11-20 09:05 | EKG REPORT ---
SEVERITY:- ABNORMAL ECG - SINUS TACHYCARDIA LEFT ANTERIOR FASCICULAR BLOCK ABNORMAL T, CONSIDER ISCHEMIA, LATERAL LEADS : Confirmed by: Patricia Shannon 20-Nov-2017 09:05:21
[2017-11-20] MEDS ORDERED: ONDANSETRON 4 MG TAB.RAPDIS PO ONE (09:40)
[2017-11-20 10:38] VITALS: BP 127/78
== END 2017-11-20 10:51 | disposition home or self-care (01) ==
LOC: ER 05:48
DX: J18.1 Lobar pneumonia, unspecified organism (principal); J42 Unspecified chronic bronchitis; J45.909 Unspecified asthma, uncomplicated; I44.4 Left anterior fascicular block; E87.0 Hyperosmolality and hypernatremia; E86.0 Dehydration; R05 Cough; J34.89 Other specified disorders of nose and nasal sinuses; Z98.84 Bariatric surgery status
CPT/HCPCS: 93005; 99284; 96361; 96375; 96365; 36415; 87040; 82550; 85025; 80053; 81001; 84484; 71046; 93010; S0119; J2930; J7030; J0456

== ENCOUNTER → 2018-05-30 | Outpatient (CLI) | payer OTHER ==
--- NOTE | 2018-05-30 09:16 | RADIOLOGY REPORT (SQ) ---
EXAM DESCRIPTION: SHERI SWALLOW COMPLETED DATE/TIME: 05/30/2018 9:06 am REASON FOR STUDY: CHRONIC LARYNGITIS J37.0 CHRONIC LARYNGITIS COMPARISON: Cookie swallow 06/14/2016. TECHNIQUE: Videofluoroscopic swallowing examination was performed in conjunction with speech patholo gy. Videofluoroscopic imaging was obtained and reviewed and these are the findings: RADIATION DOSE: Fluoro time 2.4 minutes 1 images saved to PACS. LIMITATIONS: None FINDINGS: The patient was brought into the fluoro room and placed upright on a modified barium swall ow chair. The patient was then given multiple consistencies mixed with barium to swallow under live fluoroscopic video guidance. According to the Speech Pathologist there was no penetration or aspirat ion. Please refer to the speech pathology report for further details. IMPRESSION: NO EVIDENCE OF PENETRATION OR ASPIRATION.PLEASE SEE SPEECH PATHOLOGIST REPORT FOR OTHER FINDINGS AND RECOMMENDATIONS. COMMENT: None Quality ID [id number]: Final reports for procedures using fluoroscopy that document radiation exposure corrine mary, or exposure time and number of fluorographic images (if radiation exposure indices are not avail able) TECHNICAL DOCUMENTATION: JOB ID: [id number] [employer]- All Rights Reserved Reading location - IP/workstation name: [email or web address] [id number]
--- NOTE | 2018-05-30 10:07 | ST Modified Barium Swallow ---
Recommendation - Recommendations Recommendations: Recommend alternating solids and liquids due to residue, possibly due to dry mouth. No other oral or pharyngeal phase deficits seen. May benefit from voice evaluation and treatment due to chronic hoarseness. Medical Diagnoses - Medical Diagnoses Medical Diagnosis Description & ICD-10 Code(s): chronic laryngitis J37.0, dysphagia R13.10 Other Medical Diagnoses/Co-Morbidities: per patient report: asthma, hoarseness, recurrent pneumonia. ST Modified Barium Swallow - General Date: 05/30/18 Referring Physician: Dr. Medrano Risks/Precautions: None Date of Onset: 05/25/13 Reason for Referral: pneumonia - History History obtained from: Patient -: Medical - Patient acted as her own historian this day. Reports that "problems " have been going on for approximately 5 years. She reports no sensation of aspiration, penetration, or residue. She has had recurrent pneumonia (x3 in past year) and has had voice changes in response to this. She does report being scoped by an ENT with no significant findings. Medications: per patient report: protonix, antidepressant, xanax, zocor, linzess , xopenex Allergies: none reported - Functional Status Prior Functional Status: INDEPENDENT: feeding - independent Current Functional Limitations: feeding - Subjective Patient/caregiver goal(s): r/o aspiration Cognitive-Linguistic Function: WNL Speech Intelligibility: WNL Current Nutritional Means: PO Current PO diet: Regular - some foods avoided due to dentition Current symptoms: Pneumonia Pain: Patient reports, 0/5 - Objective Assessment: Upright, Left Lateral - Food Trials Used Food trials used: Thin liquids, Pureed, Regular The patient: Was Able to Self Feed - Oral-Motor Skills Dentition: Dentures-Upper, Dentures-Lower Velo-pharyngeal function: Unremarkable - Assessment Oral prep: Normal Labial closure: Adequate Leakage: None Mastication: Adequate Lingual Movement: Normal Oral stage: Normal for this Procedure - Pharyngeal Stage Initiation of Pharyngeal Stage Reflex: Normal Decreased laryngeal elevation: No Reduced Velopharyngeal Closure: no Reduced pressure generation: Yes - mild reduced tongue-based retraction: No Pre-swallow pooling in valleculae: Moderate - with solid trials Pre-Swallow pooling in pyriforms: None Reduced epiglottic excursion: No Reduced pharyngeal peristalsis/contraction: No Multiple Swallows with: Cleared w/ Liquid Assist Post-swallow residulas vallecular: Moderate - with joaquin cracker trial only Reduced Cricopharyngeal opening: No - Fall Risk Assessment Medications/Conditions that increase fall risks include: Antidepressants, sedatives, anti-arrhythmic, diuretic, benzodiazipenes, neuroleptics. BP regulation problems, cardiac problems, balance or gait deficits, neurological problems. Fall Risk Actions Taken: No action needed - Behavioral Observations During evaluation process patient: was pleasant, was cooperative, provided medical history - Treatment / Educational Needs: Treatment/Education Needs: Treatment consisted of patient education on the role of the Speech Pathologist. Patient's plan of care and golas were communicated as well as scheduling and attendance policies. Recommendations for initial home program were shared. Patient demonstrated understanding and verbalized agreement. - Impression/Summary Laryngeal Penetration: No Tracheal Aspiration: no Patient presents with: Normal swallow at eval Risk of Aspiration: Minimal Risk of nutritional compromise: None Evaluation and Findings: Patient reported prior to study that mouth was very dry. This may have been a factor resulting in significant residue of joaquin cracker trial from base of tongue extending to valleculae. With water sip, residue cleared easily. No additional significant findings seen. - Recommendations Solid diet recommendations: Regular Liquid Diet Modification: Thin Pt/Family education and followup with MD: Yes Dysphagia therapy with SHELL MOLD BONDING MACHINE OPERATOR: no Recommended techniques: Fully Upright During Meal, Alternate Bites/Sips Supervision: Independent Information, Precautions and Recommendations: Patient (Written), Patient (Verbal ) - Time Total Time: 25 - Plan of Care Strategies to optimize patient understanding include:: ongoing assessment of educational needs, implementation of educational strategies, and re-education. - - -: Thank you for the opportunity to work with this patient and his/her family. Should you have any questions about this patient's plan or progress, I can be reached at [phone]. Charge G Code? - - -: No
== END ==
LOC: RAD 08:18
PROVIDERS: ATTEND Otolaryngology
DX: J37.0 Chronic laryngitis (principal)
CPT/HCPCS: 74230

== ENCOUNTER 2018-11-11 02:54 | Emergency (ER) | payer OTHER ==
[2018-11-11] MEDS ORDERED: IPRATROPIUM/ALBUTEROL 0.5-2.5 MG/3 ML AMPUL NEB ONE ×2 (04:42→06:05)
--- NOTE | 2018-11-11 04:44 | ER Document Report ---
ED General - General Chief Complaint: Breathing Difficulty Stated Complaint: DIFFICULTY BREATHING Time Seen by Provider: 11/11/18 04:32 Primary Care Provider: ALE BEAL MD [Primary Care Provider] - 11/13/18 Notes: Patient is a 53-year-old female presents emergency department with a chief complaint of cough x7 to 10 days. Her cough is a nonproductive cough. She states that she has had some wheezing and having a hard time getting good deep breath in. She also states that she has had some nasal congestion. She is able to get purulent drainage out of her nose. She has not seen her primary care provider, but was going to go see them in the morning but due to her worsening symptoms, decided to come into the emergency department. TRAVEL OUTSIDE OF THE [place] IN LAST 30 DAYS: No - Related Data Allergies/Adverse Reactions: No Known Allergies Allergy (Verified 11/20/17 07:16) Past Medical History - Social History Smoking Status: Unknown if Ever Smoked Family History: CAD, Hypertension Patient has suicidal ideation: No Patient has homicidal ideation: No - Past Medical History Cardiac Medical History: Reports: Hx Hypercholesterolemia Neurological Medical History: Reports: Hx Migraine Renal/ Medical History: Denies: Hx Peritoneal Dialysis GI Medical History: Reports: Hx Gastroesophageal Reflux Disease Psychiatric Medical History: Reports: Hx Anxiety, Hx Depression Past Surgical History: Reports: Hx Cholecystectomy, Hx Gastric Bypass Surgery - about 1984, Hx Hysterectomy, Hx Orthopedic Surgery - right ankle - Immunizations Hx Diphtheria, Pertussis, Tetanus Vaccination: Yes Hx Pneumococcal Vaccination: 04/25/16 Review of Systems - Review of Systems Notes: REVIEW OF SYSTEMS: CONSTITUTIONAL : Denies recent illness. Denies recent unintentional weight loss. Denies fever, chills, or sweats. EENT: Denies eye, ear, throat, or mouth pain, discharge, or symptoms. Denies nasal or sinus congestion. CARDIOVASCULAR: Denies chest pain. RESPIRATORY: See HPI GASTROINTESTINAL: Denies nausea, vomiting, and diarrhea. Denies abdominal pain. Denies constipation. GENITOURINARY: Denies difficulty urinating, burning, blood in urine, urgency or frequency. MUSCULOSKELETAL: Denies neck and back pain. Denies joint pain or swelling. SKIN: Denies rash, itchiness, or lesions HEMATOLOGIC : Denies easy bruising or bleeding. LYMPHATIC: Denies swollen, painful, enlarged glands. NEUROLOGICAL: Denies no numbness or tingling denies weakness. Denies headache. Denies altered mental status. Denies alteration in speech. PSYCHIATRIC: Denies stress, anxiety, alteration in sleep patterns, or depression. All other systems reviewed and negative. Physical Exam - Vital signs Vitals: Temp Pulse Resp BP Pulse Ox 98.4 F 104 H 24 H 139/92 H 94 11/11/18 03:04 11/11/18 03:04 11/11/18 03:04 11/11/18 03:04 11/11/18 03:04 - Notes Notes: PHYSICAL EXAMINATION: GENERAL: Morbidly obese, no acute distress. HEAD: Normocephalic, atraumatic. EYES: PERRL, conjunctiva normal, all extraocular movements intact, sclera nonicteric ENT: Dry mucous membranes. NECK: Supple, no noticeable swelling, redness, rash. Normal range of motion. LUNGS: Equal breath sounds bilaterally. Bilateral wheezing and rhonchi noted. CARDIOVASCULAR: S1-S2, regular rate, regular rhythm. Radial pulses 2+, normal. ABDOMEN: Normoactive bowel sounds. Soft, nontender, no guarding, no rebound tenderness, and no masses palpated. EXTREMITIES: Normal strength and range of motion, no pitting or edema. No cyanosis. NEUROLOGICAL: Moves all extremities upon command. Strength 5/5 in all extremities. PSYCH: Normal mood, normal affect. SKIN: Warm, dry. No rash, lesions, ulcerations noted. Normal skin turgor. Course - Re-evaluation Re-evalutation: 11/11/18 06:08 I have reassessed the patient and she still has expiratory wheezes noted throughout all lung rosales. She will receive another DuoNeb treatment. She does have a perihilar pneumonia noted on her x-ray. She will be started on antibiotics. 11/11/18 07:01 Patient still does have expiratory wheezes noted. She will receive a liter of fluids, Decadron, IV magnesium, and another DuoNeb treatment. 11/11/18 08:09 Patient's breath sounds are markedly improved with Decadron, magnesium, and the third DuoNeb treatment. There is no more wheezing. She does still have rhonchi breath sounds, consistent with her pneumonia. She will be treated with azithromycin. Patient states that she normally gets yeast infections with antibiotics. She will receive Diflucan here in the emergency department and a dose to go home with. Follow-up precautions were given. She will follow-up with her primary care provider. She will also be sent home with an albuterol inhaler. She is in agreement with this plan. Verbal discharge instructions were given to the patient. They verbalized understanding. They are stable for discharge. - Vital Signs Vital signs: Temp Pulse Resp BP Pulse Ox 98.2 F 104 H 24 H 120/81 97 11/11/18 08:00 11/11/18 03:04 11/11/18 08:00 11/11/18 08:00 11/11/18 08:00 Discharge - Discharge Clinical Impression: Difficulty breathing Pneumonia Qualifiers: Pneumonia type: due to unspecified organism Laterality: bilateral Lung location: unspecified part of lung Qualified Code(s): J18.9 - Pneumonia, unspecified organism Condition: Stable Disposition: HOME, SELF-CARE Additional Instructions: You have been diagnosed with a pneumonia. It is very important that you take all of your antibiotics until they are gone even if you are feeling better. Please return to the emergency department immediately if you began having worsening shortness of breath, become confused, have worsening pain, pass out, have persistent vomiting that prevents you from being able to drink fluids for more than 12 hours, or have any other symptoms that are worrisome to you. Please follow-up with your primary care doctor in the next 1-2 days. You can take Tylenol 1000 mg and ibuprofen 600 mg every 6 hours for pain or fever. Prescriptions: Azithromycin [Zithromax 250 mg Tablet] 250 mg PO DAILY #4 tablet Fluconazole [Diflucan 100 Mg Tablet] 100 mg PO DAILY #1 tablet Referrals: ALE BEAL MD [Primary Care Provider] - 11/13/18
--- NOTE | 2018-11-11 05:21 | RADIOLOGY REPORT (SQ) ---
EXAM DESCRIPTION: XR CHEST 2 VIEWS COMPLETED DATE/TME: 11/11/2018 04:42 CLINICAL HISTORY: cough x10 days COMPARISON: 07/01/2017 FINDINGS: Frontal and lateral views of the chest. The cardiomediastinal silhouette has normal size and contour. Patchy bilateral perihilar opacities. No pneumothorax or large effusion. No acute osseous abnormalities. Leads overlie the chest. Upper abdominal soft tissues are unremarkable. IMPRESSION: 1. Patchy bilateral perihilar opacities. These findings could be seen with acute bronchitis or developing bronchopneumonia.
[2018-11-11] MEDS ORDERED: NORMAL SALINE 1000 ML 1,000 ML IV ONE (06:53)
[2018-11-11] MEDS ORDERED: DEXAMETHASONE SOD PHOS INJ 10 MG/1 ML VIAL IV ONE (06:57)
[2018-11-11] MEDS: MAGNESIUM SULFATE/D5W 1 GM/100 ML RTUPB IV SCH ×2 (07:28→08:01)
[2018-11-11] MEDS ORDERED: AZITHROMYCIN 250 MG TABLET PO ONE (08:11)
[2018-11-11] MEDS ORDERED: FLUCONAZOLE 100 MG TABLET PO ONE (08:11)
[2018-11-11] MEDS ORDERED: ALBUTEROL SULFATE HFA (90 MCG/PUFF) 8 GM MDI (1 MDI/ER DISP) IH PRN (08:18)
[2018-11-11 09:00] VITALS: BP 120/81
== END 2018-11-11 10:53 | disposition home or self-care (01) ==
LOC: ER 02:54
DX: J18.9 Pneumonia, unspecified organism (principal); E78.00 Pure hypercholesterolemia, unspecified; Z90.49 Acquired absence of other specified parts of digestive tract; Z98.84 Bariatric surgery status; Z90.710 Acquired absence of both cervix and uterus
CPT/HCPCS: 94640 ×2; 99284; 96361; 96375; 96365; 71046; J3475; J7030; J1100; J3490; J7620

== ENCOUNTER 2018-11-13 06:05 | Inpatient (IN) | payer OTHER ==
[2018-11-13] MEDS ORDERED: IPRATROPIUM/ALBUTEROL 0.5-2.5 MG/3 ML AMPUL NEB ONE (06:37)
[2018-11-13 06:45] LABS: ABSOLUTE BASOPHILS # (AUTO) 0.1 10^3/uL (0.0-0.2); ABSOLUTE EOSINOPHILS # (AUTO) 0.5 10^3/uL (0.0-0.6); ABSOLUTE LYMPHOCYTES (AUTO) 1.6 10^3/uL (0.5-4.7); ABSOLUTE MONOCYTES (AUTO) 0.5 10^3/uL (0.1-1.4); ABSOLUTE NEUT (AUTO) 3.9 10^3/uL (1.7-8.2); BASOPHILS % (AUTO) 1.1 % (0-2); EOSINOPHILS % (AUTO) 7.8 % (0-6); HEMATOCRIT 36.3 % (36.0-47.0); HEMOGLOBIN 11.8 g/dL (12.0-15.5); LYMPHOCYTES % (AUTO) 24.6 % (13-45); MEAN CORPUSCULAR HEMOGLOBIN 29.1 pg (27.0-33.4); MEAN CORPUSCULAR HGB CONC 32.7 g/dL (32.0-36.0); MEAN CORPUSCULAR VOLUME 89 fl (80-97); MONOCYTES % (AUTO) 7.8 % (3-13); PLATELET COUNT 235 10^3/uL (150-450); RED BLOOD COUNT 4.06 10^6/uL (3.72-5.28); RED CELL DISTRIBUTION WIDTH 14.9 % (11.5-14.0); SEGMENTED NEUTROPHILS % (AUTO) 58.7 % (42-78); TOTAL CELLS COUNTED % (AUTO) 100 %; WHITE BLOOD COUNT 6.6 10^3/uL (4.0-10.5)
--- NOTE | 2018-11-13 06:48 | ER Document Report ---
ED Medical Screen (RME) - General Chief Complaint: Shortness Of Breath Stated Complaint: PNUEMONIA, GETTING WORSE Primary Care Provider: ALE BEAL MD [Primary Care Provider] - Follow up as needed TRAVEL OUTSIDE OF THE [place] IN LAST 30 DAYS: No - HPI Notes: 11/13/18 06:45 Patient presents to the emergency department with a chief complaint of shortness of breath. Patient states that she was diagnosed with pneumonia 2 days ago at this facility once placed on azithromycin. Patient reports that she was also given oral prednisone in which she has been taking. Patient reports that she has an increased productive cough with thick yellow sputum as well as increased wheezing. Patient has been using her albuterol inhaler which does help initially but that she feels more short of breath. Reports that she does have a history of asthma and frequent pneumonia acquiring hospitalization. Patient denies fever but has had chills. Patient denies nausea vomiting or diarrhea. - Related Data Allergies/Adverse Reactions: No Known Allergies Allergy (Verified 11/20/17 07:16) Past Medical History - Past Medical History Cardiac Medical History: Reports: Hx Hypercholesterolemia Neurological Medical History: Reports: Hx Migraine Renal/ Medical History: Denies: Hx Peritoneal Dialysis GI Medical History: Reports: Hx Gastroesophageal Reflux Disease Psychiatric Medical History: Reports: Hx Anxiety, Hx Depression Past Surgical History: Reports: Hx Cholecystectomy, Hx Gastric Bypass Surgery - about 1984, Hx Hysterectomy, Hx Orthopedic Surgery - right ankle - Immunizations Hx Diphtheria, Pertussis, Tetanus Vaccination: Yes History of Influenza Vaccine for 03/2017 - 08/2017 Season: Yes Influenza Administration Date for 03/2017 - 08/2017 Season: 04/06/17 Physical Exam - Vital signs Vitals: Temp Pulse Resp BP Pulse Ox 97.5 F 84 24 H 127/67 H 96 11/13/18 06:12 11/13/18 06:12 11/13/18 06:12 11/13/18 06:12 11/13/18 06:12 - Respiratory Respiratory status: Labored, Tachypnea Breath sounds: Productive cough, Rhonchi, Wheezing Notes: Expiratory wheezing heard throughout with scattered rhonchi. Course - Re-evaluation Re-evalutation: 11/13/18 06:47 I have greeted and performed a rapid initial assessment of this patient. A comprehensive ED assessment and evaluation of the patient, analysis of test results and completion of the medical decision making process will be conducted by additional ED providers. - Vital Signs Vital signs: Temp Pulse Resp BP Pulse Ox 97.5 F 84 24 H 127/67 H 94 11/13/18 06:12 11/13/18 06:12 11/13/18 06:12 11/13/18 06:12 11/13/18 06:37 - Laboratory Result Diagrams: 11/13/18 06:36 11/13/18 06:36 Doctor's Discharge - Discharge Referrals: ALE BEAL MD [Primary Care Provider] - Follow up as needed
--- NOTE | 2018-11-13 07:33 | RADIOLOGY REPORT (SQ) ---
EXAM DESCRIPTION: XR CHEST 2 VIEWS COMPLETED DATE/TME: 11/13/2018 06:37 CLINICAL HISTORY: 53 years Female, shortness of breath COMPARISON: 07/01/17 NUMBER OF VIEWS/TECHNIQUE: 2, PA/Lateral FINDINGS: Adequate lung volume, mild central edema, cephalization, normal cardiac silhouette, and intact bony thorax. IMPRESSION: Mild central edema.
[2018-11-13 07:37] LABS: ALANINE AMINOTRANSFERASE 21 U/L (9-52); ALBUMIN 3.3 g/dL (3.5-5.0); ALKALINE PHOSPHATASE 69 U/L (38-126); ANION GAP 7 (5-19); ASPARTATE AMINO TRANSFERASE 18 U/L (14-36); BILIRUBIN,DIRECT 0.2 mg/dL (0.0-0.4); BILIRUBIN,TOTAL 0.3 mg/dL (0.2-1.3); BLOOD UREA NITROGEN 8 mg/dL (7-20); CALCIUM 8.9 mg/dL (8.4-10.2); CARBON DIOXIDE 24 mmol/L (22-30); CHLORIDE 112 mmol/L (98-107); GLUCOSE 79 mg/dL (75-110); SODIUM 142.8 mmol/L (137-145); TOTAL PROTEIN 6.7 g/dL (6.3-8.2)
[2018-11-13] MEDS ORDERED: ALBUTEROL SULFATE 0.083% NEB 2.5 MG/3 ML AMPUL NEB ONE ×3 (07:51→12:37)
[2018-11-13] MEDS ORDERED: LIDOCAINE 1% INJ-PF (10 MG/ML) 30 ML SDV INJ ONE (07:51)
[2018-11-13] MEDS ORDERED: METHYLPREDNISOLONE INJ 125 MG/2 ML SDV IV ONE (07:52)
[2018-11-13] MEDS: MAGNESIUM SULFATE/D5W 1 GM/100 ML RTUPB IV SCH ×2 (08:10→09:11)
--- NOTE | 2018-11-13 09:16 | ER Document Report ---
Entered by KAROL ABRAMS SCRIBE 11/13/18 0810 Acting as scribe for:DAIANA THORNE MD ED General - General Chief Complaint: Shortness Of Breath Stated Complaint: PNUEMONIA, GETTING WORSE Time Seen by Provider: 11/13/18 07:31 Mode of Arrival: Ambulatory Information source: Patient Notes: Patient is a 53 year old female with COPD, HLD, GERD, chronic constipation, c hronic bronchitis and reoccurring pneumonia presents to the emergency department complaining of shortness of breath, cough and congestion. Patient presented to the emergency department 2 days ago complaining of similar symptoms. She received a chest xray and was diagnosed with pneumonia and discharged home after receiving Decadron and given a prescription for Zithromax and Diflucan. Patient states her symptoms are persisting and she has developed a yellow greenish sputum with her cough. Patient denies any fevers. Patient does have a nebulizer at home, and has been using it with albuterol abo ut 3-4 times a day since she got sick. She has been admitted here 3 times in the past for pneumonia and COPD exacerbation, once in May 2016, and again in January and March of 2017. TRAVEL OUTSIDE OF THE [place] IN LAST 30 DAYS: No - Related Data Allergies/Adverse Reactions: No Known Allergies Allergy (Verified 11/13/18 07:35) Past Medical History - General Information source: Patient - Social History Smoking Status: Never Smoker - Heavy passive smoker as an child Cigarette use (# per day): No Chew tobacco use (# tins/day): No Smoking Education Provided: No Family History: CAD, Hypertension Patient has suicidal ideation: No Patient has homicidal ideation: No - Past Medical History Cardiac Medical History: Reports: Hx Hypercholesterolemia Neurological Medical History: Reports: Hx Migraine GI Medical History: Reports: Hx Gastroesophageal Reflux Disease Psychiatric Medical History: Reports: Hx Anxiety, Hx Depression Past Surgical History: Reports: Hx Cholecystectomy, Hx Gastric Bypass Surgery - about 1984, Hx Hysterectomy, Hx Orthopedic Surgery - right ankle - Immunizations Hx Diphtheria, Pertussis, Tetanus Vaccination: Yes Hx Pneumococcal Vaccination: 04/25/16 Review of Systems - Review of Systems Constitutional: No symptoms reported EENT: No symptoms reported Cardiovascular: No symptoms reported Respiratory: See HPI, Cough, Short of breath, Sputum Gastrointestinal: No symptoms reported Genitourinary: No symptoms reported Female Genitourinary: No symptoms reported Musculoskeletal: No symptoms reported Skin: No symptoms reported Hematologic/Lymphatic: No symptoms reported Neurological/Psychological: No symptoms reported -: Yes All other systems reviewed and negative Physical Exam - Vital signs Vitals: Temp Pulse Resp BP Pulse Ox 97.5 F 84 24 H 127/67 H 96 11/13/18 06:12 11/13/18 06:12 11/13/18 06:12 11/13/18 06:12 11/13/18 06:12 - Notes Notes: GENERAL: Alert, interacts well. No acute distress. HEAD: Normocephalic, atraumatic. EYES: Pupils equal, round, and reactive to light. Extraocular movements intact. ENT: Oral mucosa moist, tongue midline. NECK: Full range of motion. Supple. Trachea midline. LUNGS: Diffuse wheezes and rhonchi, no retractions. No respiratory distress. HEART: Regular rate and rhythm. No murmurs, gallops, or rubs. ABDOMEN: Soft, non-tender. Non-distended. Bowel sounds present in all 4 quadrants. No guarding, rigidity, or rebound. EXTREMITIES: Moves all 4 extremities spontaneously. No edema, radial and dorsalis pedis pulses 2/4 bilaterally. No cyanosis. NEUROLOGICAL: Alert and oriented x3. Normal speech. PSYCH: Normal affect, normal mood. Course - Re-evaluation Re-evalutation: 11/13/18 08:42 Clinically the patient appears to have bronchitis with bronchospasm and based on prior admissions most likely has some component of COPD. Chest x-ray was read as mild central edema, however her BNP is quite low and there is no reason for the patient to have any kind of congestive heart failure. She also reports that her sputum has been thick and yellow. 11/13/18 09:55 Patient has not been able to cough up any sputum yet. She is receiving the ma gnesium IV at this time. Her lungs do sound better but there is still considerable prolonged expiratory wheezes predominantly on the left side. She does continue to have the harsh coarse bronchitic cough. Her pulse ox is 96% on room air and her heart rates about 110 at this time. 11/13/18 11:00 At this time patient is sleeping. There is significant audible expiratory wheezes with prolonged expiratory phase. Her pulse ox is 88% on room air while she is asleep. She does appear to be a sleep apnea type patient. - Vital Signs Vital signs: Temp Pulse Resp BP Pulse Ox 97.9 F 84 19 140/84 H 95 11/13/18 08:00 11/13/18 06:12 11/13/18 13:28 11/13/18 13:28 11/13/18 13:28 - Laboratory Result Diagrams: 11/13/18 06:36 11/13/18 06:36 Laboratory results interpreted by me: 11/13/18 11/13/18 11/13/18 06:36 06:36 11:52 Hgb 11.8 L RDW 14.9 H Eosinophils % 7.8 H Carbonic Acid 1.63 H ABG pH 7.27 L ABG pCO2 54.2 H ABG pO2 33.3 L* ABG HCO3 24.4 H ABG Total CO2 26.0 H ABG O2 Saturation 55.4 L Chloride 112 H Albumin 3.3 L - Diagnostic Test Radiology reviewed: Image reviewed, Reports reviewed - Chest x-ray is read mild central edema. - EKG Interpretation by Me EKG shows normal: Sinus rhythm, [place], Intervals, QRS Complexes, ST-T Waves Rate: Normal - 90 Rhythm: NSR [place]/QRS: Left axis deviation, LAHB/LAFB When compared to previous EKG there are: No significant change - Consults Dr. Rodriguez Time consulted: 12:38 Consulted provider: will come to ER Discharge - Discharge Clinical Impression: Acute exacerbation of chronic obstructive pulmonary disease (COPD), Hypoxia Condition: Good Disposition: ADMITTED INPATIENT Admitting Provider: Michael (Hospitalist) Unit Admitted: Telemetry Scribe Attestation: 11/13/18 08:15 I personally performed the services described in the documentation, reviewed and edited the documentation which was dictated to the scribe in my presence, and it accurately records my words and actions. I personally performed the services described in the documentation, reviewed and edited the documentation which was dictated to the scribe in my presence, and it accurately records my words and actions.
[2018-11-13 12:29] LABS: ARTERIAL BLOOD BASE EXCESS -3.6 mmol/L; ARTERIAL BLOOD H2CO3 1.63 mmol/L (1.05-1.35); ARTERIAL BLOOD HCO3 24.4 mmol/L (20-24); ARTERIAL BLOOD O2 SATURATION 55.4 % (94-98); ARTERIAL BLOOD PCO2 54.2 mmHg (35-45); ARTERIAL BLOOD PH 7.27 (7.35-7.45)
[2018-11-13 12:30] LABS: ARTERIAL BLOOD FIO2 2L
[2018-11-13 12:31] LABS: ARTERIAL BLOOD PO2 33.3 mmHg (80-100)
[2018-11-13] MEDS ORDERED: ALBUTEROL SULFATE 0.083% NEB 2.5 MG/3 ML AMPUL NEB PRN ×3 (13:30→16:49)
[2018-11-13] MEDS ORDERED: PROMETHAZINE HCL 25 MG TABLET PO PRN (16:40)
[2018-11-13] MEDS ORDERED: FLUTICASONE NASAL SPRAY 50 MCG/SPRY 120 SPRAY/16 GM NASL PRN (16:40)
[2018-11-13] MEDS ORDERED: SCOPOLAMINE HYDROBROMIDE 1.5 MG PATCH.TD72 TD PRN (16:40)
[2018-11-13] MEDS ORDERED: SUMATRIPTAN SUCCINATE INJ/PF 6 MG/0.5 ML SDV SUBCUT PRN (16:40)
--- NOTE | 2018-11-13 16:56 | PDOC H&P ---
History of Present Illness Admission Date/PCP: 11/13/18 12:51 ALE BEAL MD Patient complains of: Cough and shortness of breath History of Present Illness: KIRAN COLE is a 53 year old female who has history of migraine and COPD/bronchial asthma. Patient is not on home oxygen. Patient presents emergency room due to 5 days course of acute progressive onset of dry cough associated with shortness of breath. Patient came to the emergency room 2 days ago and received DuoNeb treatment. She was also started on antibiotics. She also received Decadron. Patient was discharged in the improved condition. She did not improve and continued to have symptoms and actually symptoms worsen. He also had wheezing with her symptoms. Her pulse ox was down to 88% in the emergency room. Past Medical History Cardiac Medical History: Reports: Hyperlipidema Neurological Medical History: Reports: Migraine GI Medical History: Reports: Gastroesophageal Reflux Disease Psychiatric Medical History: Reports: Depression Past Surgical History Past Surgical History: Reports: Cholecystectomy, Gastric Bypass Surgery - about 1984, Hysterectomy, Orthopedic Surgery - right ankle Social History Smoking Status: Never Smoker - Heavy passive smoker as an child Frequency of Alcohol Use: None Hx Recreational Drug Use: No Drugs: None Hx Prescription Drug Abuse: No - Advance Directive Resuscitation Status: Full Code Family History Family History: CAD, Hypertension Parental Family History Reviewed: Yes Children Family History Reviewed: Yes Sibling(s) Family History Reviewed.: Yes Medication/Allergy Home Medications: Alprazolam [Xanax] 1 mg PO Q8 04/22/17 Divalproex Sodium [Divalproex Sodium ER] 750 mg PO QHS 04/22/17 Escitalopram Oxalate [Lexapro] 20 mg PO DAILY 04/22/17 Linaclotide [Linzess] 290 mg PO BIDBS 04/22/17 Promethazine HCl 25 mg PO Q4HP PRN 04/22/17 Simvastatin [Zocor 40 mg Tablet] 40 mg PO QHS 04/22/17 Topiramate [Topamax] 200 mg PO Q12 04/22/17 Tramadol HCl [Ultram 50 mg Tablet] 50 mg PO Q8HP PRN 04/22/17 Albuterol Sulfate [Ventolin 0.083% Neb 2.5 mg/3 ml Ampul] 1 vial NEB Q6HP PRN 11/13/18 Amitriptyline HCl [Elavil 100 mg Tablet] 100 mg PO QHS 11/13/18 Fluticasone Propionate [Flonase Nasal [place] 50 Mcg/[place] 16 gm] 2 sprays NASL DAILYP PRN 11/13/18 Montelukast Sodium [Singulair 10 mg Tablet] 10 mg PO QHS 11/13/18 Pantoprazole Sodium [Protonix [address] Tablet] 40 mg PO QAM 11/13/18 Scopolamine Hydrobromide [Transderm-Scop 1.5 mg Patch] 1 patch TD Q3DAYS PRN MDD BEEN TRAVELING A LOT LATELY 11/13/18 Sumatriptan Succinate [Imitrex Inj/Pf 6 Mg/0.5 Ml Sdv] 6 mg SUBCUT ASDIR PRN MDD NOT REALLY WORKING 11/13/18 Allergies/Adverse Reactions: No Known Allergies Allergy (Verified 11/13/18 07:35) Review of Systems All systems: reviewed and no additional remarkable complaints except as stated Physical Exam Vital Signs: Temp Pulse Resp BP Pulse Ox 97.8 F 84 18 128/83 H 96 11/13/18 15:26 11/13/18 06:12 11/13/18 15:01 11/13/18 15:01 11/13/18 15:28 Intake & Output 11/12/18 11/13/18 11/14/18 06:59 06:59 06:59 Intake Total 400 Balance 400 Weight 322 lb 12.108 oz Exam: Patient is no acute distress Alert oriented to time place person No anxiety or depression Head: atraumatic normocephalic Pupils: are equal reactive Neck: is supple and trachea is central no lymphadenopathy No pharyngeal erythema or exudates Heart: Regular rate and rhythm Lungs: Bilateral wheezing, prolonged expiratory phase. Normal respiratory effort. Abdomen: nontender nondistended Neurological exam: unremarkable Musculoskeletal: No joint swelling or effusion chronic lower back pain and tenderness No suicidal or homicidal ideation Results Laboratory Results: 11/13/18 06:36 11/13/18 06:36 11/13/18 11/13/18 11/13/18 06:36 06:36 06:36 WBC 6.6 RBC 4.06 Hgb 11.8 L Hct 36.3 MCV 89 MCH 29.1 MCHC 32.7 RDW 14.9 H Plt Count 235 Seg Neutrophils % 58.7 Lymphocytes % 24.6 Monocytes % 7.8 Eosinophils % 7.8 H Basophils % 1.1 Absolute Neutrophils 3.9 Absolute Lymphocytes 1.6 Absolute Monocytes 0.5 Absolute Eosinophils 0.5 Absolute Basophils 0.1 Carbonic Acid HCO3/H2CO3 Ratio ABG pH ABG pCO2 ABG pO2 ABG HCO3 ABG O2 Saturation ABG Base Excess FiO2 Sodium 142.8 Potassium 4.0 Chloride 112 H Carbon Dioxide 24 Anion Gap 7 BUN 8 Creatinine 0.61 Est GFR ( Amer) > 60 Est GFR (Non-Af Amer) > 60 Glucose 79 Calcium 8.9 Magnesium 2.3 Total Bilirubin 0.3 AST 18 ALT 21 Alkaline Phosphatase 69 Total Protein 6.7 Albumin 3.3 L 11/13/18 11:52 WBC RBC Hgb Hct MCV MCH MCHC RDW Plt Count Seg Neutrophils % Lymphocytes % Monocytes % Eosinophils % Basophils % Absolute Neutrophils Absolute Lymphocytes Absolute Monocytes Absolute Eosinophils Absolute Basophils Carbonic Acid 1.63 H HCO3/H2CO3 Ratio 14:1 ABG pH 7.27 L ABG pCO2 54.2 H ABG pO2 33.3 L* ABG HCO3 24.4 H ABG O2 Saturation 55.4 L ABG Base Excess -3.6 FiO2 2L Sodium Potassium Chloride Carbon Dioxide Anion Gap BUN Creatinine Est GFR ( Amer) Est GFR (Non-Af Amer) Glucose Calcium Magnesium Total Bilirubin AST ALT Alkaline Phosphatase Total Protein Albumin 11/13/18 06:36 NT-Pro-B Natriuret Pep 131 Impressions: Chest X-Ray 11/13/18 06:37 IMPRESSION: Mild central edema. Assessment and Plan - Diagnosis (1) Acute exacerbation of chronic obstructive pulmonary disease (COPD) Is this a current diagnosis for this admission?: Yes Plan: Start IV Solu-Medrol, antibiotics, inhaled beta ashish anticholinergic treatments (2) Hypoxia Is this a current diagnosis for this admission?: Yes Plan: Start oxygen supplements as needed titrate down as tolerated (3) Acute bronchitis Is this a current diagnosis for this admission?: Yes Plan: Start azithromycin (4) Depression Is this a current diagnosis for this admission?: Yes Plan: Continue home meds (5) Hypercholesteremia Is this a current diagnosis for this admission?: Yes Plan: Continue statin (6) Migraine Is this a current diagnosis for this admission?: Yes Plan: Continue home medication (7) Morbid (severe) obesity due to excess calories Is this a current diagnosis for this admission?: Yes Plan: Recommend lifestyle modifications
[2018-11-13] MEDS ORDERED: (PENDING PHARMACY ID) (Linaclotide [Linzess] 290 MG) PO SCH (17:00)
[2018-11-13] MEDS ORDERED: AZITHROMYCIN 250 MG TABLET PO ONE (17:30)
[2018-11-13] MEDS ORDERED: ACETAMINOPHEN 325 MG TABLET PO PRN (17:31)
[2018-11-13] MEDS: TRAMADOL HCL 50 MG TABLET PO PRN (17:40)
[2018-11-13] MEDS: IPRATROPIUM/ALBUTEROL 0.5-2.5 MG/3 ML AMPUL NEB SCH ×2 (18:23→22:07)
[2018-11-13] MEDS ORDERED: IPRATROPIUM/ALBUTEROL 0.5-2.5 MG/3 ML AMPUL NEB SCH (20:00)
[2018-11-13] MEDS ORDERED: METHYLPREDNISOLONE INJ 40 MG/1 ML SDV IV SCH (22:00)
[2018-11-13] MEDS ORDERED: (PENDING PHARMACY ID) (Amitriptyline Hcl [Elavil 100 Mg Tablet] 100 MG) PO SCH (22:00)
[2018-11-13] MEDS ORDERED: (PENDING PHARMACY ID) (Topiramate [Topamax] 200 MG) PO SCH (22:00)
[2018-11-13] MEDS: DIVALPROEX SODIUM 250 MG TAB.SR.24H PO SCH (22:09)
[2018-11-13] MEDS: SIMVASTATIN 40 MG TABLET PO SCH (22:10)
[2018-11-13] MEDS: ALPRAZOLAM 0.5 MG TABLET PO SCH (22:10)
[2018-11-13] MEDS: MONTELUKAST SODIUM 10 MG TABLET PO SCH (22:10)
[2018-11-13] MEDS: AMITRIPTYLINE HCL 50 MG TABLET PO SCH (22:10)
[2018-11-13] MEDS: TOPIRAMATE 100 MG TABLET PO SCH (22:11)
[2018-11-13] MEDS: GUAIFENESIN 600 MG TABLET.SA PO SCH (22:11)
[2018-11-13] MEDS: METHYLPREDNISOLONE INJ 125 MG/2 ML SDV IV SCH (22:11)
--- NOTE | 2018-11-13 23:41 | EKG REPORT ---
SEVERITY:- ABNORMAL ECG - SINUS RHYTHM LAD, CONSIDER LEFT ANTERIOR FASCICULAR BLOCK : Confirmed by: Patricia Shannon 13-Nov-2018 23:39:54
[2018-11-14] MEDS: IPRATROPIUM/ALBUTEROL 0.5-2.5 MG/3 ML AMPUL NEB SCH ×6 (00:15→19:54)
[2018-11-14 05:16] LABS: HEMATOCRIT 36.9 % (36.0-47.0); HEMOGLOBIN 11.9 g/dL (12.0-15.5); MEAN CORPUSCULAR HEMOGLOBIN 28.8 pg (27.0-33.4); MEAN CORPUSCULAR HGB CONC 32.2 g/dL (32.0-36.0); MEAN CORPUSCULAR VOLUME 90 fl (80-97); PLATELET COUNT 229 10^3/uL (150-450); RED BLOOD COUNT 4.12 10^6/uL (3.72-5.28); RED CELL DISTRIBUTION WIDTH 15.1 % (11.5-14.0); WHITE BLOOD COUNT 3.9 10^3/uL (4.0-10.5)
[2018-11-14 05:34] LABS: ANION GAP 13 (5-19); BLOOD UREA NITROGEN 10 mg/dL (7-20); CALCIUM 9.4 mg/dL (8.4-10.2); CARBON DIOXIDE 21 mmol/L (22-30); CHLORIDE 112 mmol/L (98-107); GLUCOSE 150 mg/dL (75-110); POTASSIUM 4.3 mmol/L (3.6-5.0); SODIUM 146.3 mmol/L (137-145)
[2018-11-14] MEDS: ALPRAZOLAM 0.5 MG TABLET PO SCH ×3 (06:27→21:28)
[2018-11-14] MEDS: METHYLPREDNISOLONE INJ 125 MG/2 ML SDV IV SCH ×3 (06:27→21:28)
[2018-11-14] MEDS: PANTOPRAZOLE SODIUM 40 MG TABLET.DR PO SCH (07:42)
[2018-11-14] MEDS: AZITHROMYCIN 250 MG TABLET PO SCH (10:13)
[2018-11-14] MEDS: ESCITALOPRAM OXALATE 10 MG TABLET PO SCH (10:13)
[2018-11-14] MEDS: GUAIFENESIN 600 MG TABLET.SA PO SCH ×2 (10:13→21:28)
[2018-11-14] MEDS: ENOXAPARIN SODIUM INJ 40 MG/0.4 ML DISP.SYRIN SUBCUT SCH (10:14)
[2018-11-14] MEDS: TOPIRAMATE 100 MG TABLET PO SCH ×2 (10:21→21:40)
[2018-11-14] MEDS: TRAMADOL HCL 50 MG TABLET PO PRN (13:28)
--- NOTE | 2018-11-14 16:33 | PDOC PROGRESS REPORT ---
Subjective Progress Note for:: 11/14/18 Subjective:: This is a 53 year old female who has history of migraine and COPD/bronchial asthma who presented with SOB. She was noted to be hypoxic and was admitted for COPD exacerbation. No acute event overnight. She says her SOB has slightly improved today. She is saturating well on nasal cannula. Reason For Visit: COPD EXACERBATION Physical Exam Vital Signs: Temp Pulse Resp BP Pulse Ox 97.7 F 96 20 143/85 H 94 11/14/18 11:00 11/14/18 11:42 11/14/18 11:42 11/14/18 11:00 11/14/18 11:42 Intake & Output 11/13/18 11/14/18 11/15/18 06:59 06:59 06:59 Intake Total 843 590 Balance 843 590 Weight 322 lb 12.108 oz 277 lb 5.464 oz General appearance: PRESENT: no acute distress, well-developed, well-nourished Head exam: PRESENT: atraumatic, normocephalic Eye exam: PRESENT: conjunctiva pink, EOMI, PERRLA. ABSENT: scleral icterus Ear exam: PRESENT: normal external ear exam Mouth exam: PRESENT: moist, tongue midline Neck exam: ABSENT: carotid bruit, JVD, lymphadenopathy, thyromegaly Respiratory exam: PRESENT: wheezes. ABSENT: rales, rhonchi Cardiovascular exam: PRESENT: RRR. ABSENT: diastolic murmur, rubs, systolic murmur Pulses: PRESENT: normal dorsalis pedis pul GI/Abdominal exam: PRESENT: normal bowel sounds, soft. ABSENT: distended, guarding, mass, organolmegaly, rebound, tenderness Rectal exam: PRESENT: deferred Neurological exam: PRESENT: alert, awake, oriented to person, oriented to place, oriented to time, oriented to situation, CN II-XII grossly intact. ABSENT: motor sensory deficit Results Laboratory Results: 11/14/18 04:41 11/14/18 04:41 11/14/18 11/14/18 04:41 04:41 WBC 3.9 L RBC 4.12 Hgb 11.9 L Hct 36.9 MCV 90 MCH 28.8 MCHC 32.2 RDW 15.1 H Plt Count 229 Sodium 146.3 H Potassium 4.3 Chloride 112 H Carbon Dioxide 21 L Anion Gap 13 BUN 10 Creatinine 0.56 Est GFR ( Amer) > 60 Est GFR (Non-Af Amer) > 60 Glucose 150 H Calcium 9.4 11/13/18 06:36 NT-Pro-B Natriuret Pep 131 Impressions: Chest X-Ray 11/13/18 06:37 IMPRESSION: Mild central edema. Assessment and Plan - Diagnosis (1) Acute hypoxemic respiratory failure Is this a current diagnosis for this admission?: Yes Plan: Secondary to COPD exacerbation. Will try to wean off O2 today. (2) Acute exacerbation of chronic obstructive pulmonary disease (COPD) Is this a current diagnosis for this admission?: Yes Plan: Decrease solumedrol to 40 mg q12. Continue breathing treatments. - Time Time Spent with patient: 15-24 minutes
[2018-11-14] MEDS: ACETAMINOPHEN 325 MG TABLET PO SCH ×2 (18:04→21:29)
[2018-11-14] MEDS: SIMVASTATIN 40 MG TABLET PO SCH (21:28)
[2018-11-14] MEDS: DIVALPROEX SODIUM 250 MG TAB.SR.24H PO SCH (21:28)
[2018-11-14] MEDS: MONTELUKAST SODIUM 10 MG TABLET PO SCH (21:28)
[2018-11-14] MEDS: AMITRIPTYLINE HCL 50 MG TABLET PO SCH (21:28)
[2018-11-15] MEDS: IPRATROPIUM/ALBUTEROL 0.5-2.5 MG/3 ML AMPUL NEB SCH ×4 (00:22→12:37)
[2018-11-15] MEDS: ACETAMINOPHEN 325 MG TABLET PO SCH ×4 (04:48→10:16)
[2018-11-15] MEDS: METHYLPREDNISOLONE INJ 125 MG/2 ML SDV IV SCH (06:11)
[2018-11-15] MEDS: ALPRAZOLAM 0.5 MG TABLET PO SCH (06:12)
[2018-11-15] MEDS: PANTOPRAZOLE SODIUM 40 MG TABLET.DR PO SCH (07:48)
[2018-11-15] MEDS: ESCITALOPRAM OXALATE 10 MG TABLET PO SCH (10:14)
[2018-11-15] MEDS: TOPIRAMATE 100 MG TABLET PO SCH (10:14)
[2018-11-15] MEDS: AZITHROMYCIN 250 MG TABLET PO SCH (10:14)
[2018-11-15] MEDS: GUAIFENESIN 600 MG TABLET.SA PO SCH (10:15)
[2018-11-15] MEDS: ENOXAPARIN SODIUM INJ 40 MG/0.4 ML DISP.SYRIN SUBCUT SCH (10:15)
[2018-11-15 12:48] VITALS: BP 153/88
--- NOTE | 2018-11-15 18:22 | PDOC DISCHARGE SUMMARY ---
General - Admit/Disc Date/PCP Admission Date/Primary Care Provider: 11/13/18 12:51 ALE BEAL MD Discharge Date: 11/15/18 - Discharge Diagnosis (1) Acute hypoxemic respiratory failure Is this a current diagnosis for this admission?: Yes (2) Acute exacerbation of chronic obstructive pulmonary disease (COPD) Is this a current diagnosis for this admission?: Yes - Additional Information Resuscitation Status: Full Code Discharge Diet: As Tolerated Discharge Activity: Activity As Tolerated Prescriptions: Fluticasone/Salmeterol [Advair 250-50 Diskus 14 Dose/Diskus] 1 inh IH Q12H #1 inhaler Prednisone [Deltasone 20 mg Tablet] 20 mg PO BID 5 Days #10 tablet Tiotropium [place] [Spiriva Handihaler 5 Cap/Kit (18 Mcg/Cap)] 1 cap IH DAILY #30 capsule Home Medications: Alprazolam [Xanax] 1 mg PO Q8 04/22/17 Divalproex Sodium [Divalproex Sodium ER] 750 mg PO QHS 04/22/17 Escitalopram Oxalate [Lexapro] 20 mg PO DAILY 04/22/17 Linaclotide [Linzess] 290 mg PO BIDBS 04/22/17 Promethazine HCl 25 mg PO Q4HP PRN 04/22/17 Simvastatin [Zocor 40 mg Tablet] 40 mg PO QHS 04/22/17 Topiramate [Topamax] 200 mg PO Q12 04/22/17 Tramadol HCl [Ultram 50 mg Tablet] 50 mg PO Q8HP PRN 04/22/17 Albuterol Sulfate [Ventolin 0.083% Neb 2.5 mg/3 mL Ampul] 1 vial NEB Q6HP PRN 11/13/18 Amitriptyline HCl [Elavil 100 mg Tablet] 100 mg PO QHS 11/13/18 Fluticasone Propionate [Flonase Nasal [place] 50 Mcg/[place] 16 gm] 2 sprays NASL DAILYP PRN 11/13/18 Montelukast Sodium [Singulair 10 mg Tablet] 10 mg PO QHS 11/13/18 Pantoprazole Sodium [Protonix [address] Tablet] 40 mg PO QAM 11/13/18 Scopolamine Hydrobromide [Transderm-Scop 1.5 mg Patch] 1 patch TD Q3DAYS PRN MDD BEEN TRAVELING A LOT LATELY 11/13/18 Sumatriptan Succinate [Imitrex Inj/Pf 6 mg/0.5 ml Sdv] 6 mg SUBCUT ASDIR PRN MDD NOT REALLY WORKING 11/13/18 Fluticasone/Salmeterol [Advair 250-50 Diskus 14 Dose/Diskus] 1 inh IH Q12H #1 inhaler 11/15/18 Prednisone [Deltasone 20 mg Tablet] 20 mg PO BID 5 Days #10 tablet 11/15/18 Tiotropium [place] [Spiriva Handihaler 5 Cap/Kit (18 Mcg/Cap)] 1 cap IH DAILY #30 capsule 11/15/18 History of Present Illness Patient complains of: SOB History of Present Illness: Admitting hospitalist's H&P: KIRAN COLE is a 53 year old female who has history of migraine and COPD/bronchial asthma. Patient is not on home oxygen. Patient presents emergency room due to 5 days course of acute progressive onset of dry cough associated with shortness of breath. Patient came to the emergency room 2 days ago and received DuoNeb treatment. She was also started on antibiotics. She also received Decadron. Patient was discharged in the improved condition. She did not improve and continued to have symptoms and actually symptoms worsen. He also had wheezing with her symptoms. Her pulse ox was down to 88% in the emergency room. Hospital Course Hospital Course: This is a 53 year old female who has history of migraine and COPD/bronchial asthma who presented with SOB, cough and wheezing. She was noted to be hypoxic and was admitted for COPD exacerbation. Her chest x-ray showed possible congestion but she had significant wheezing on admission rather than rales and she promptly responded to IV steroids and breathing treatments. She significantly improved and returned to her baseline with above regimen and was easily weaned off O2 and ambulated on room air with no issues. She had clear breath sounds on day of discharge. She will be discharged on 5 more days of prednisone. Spiriva and Advair will also be added to her regimen. She has a ff-up visit with her PCP next week and recommended discussing possible outpatient echo. Physical Exam Vital Signs: Temp Pulse Resp BP Pulse Ox 97.9 F 74 18 153/88 H 97 11/15/18 12:00 11/15/18 12:00 11/15/18 12:00 11/15/18 12:00 11/15/18 12:00 Intake & Output 11/14/18 11/15/18 11/16/18 06:59 06:59 06:59 Intake Total 843 2980 Balance 843 2980 Weight 277 lb 5.464 oz 278 lb 3.574 oz General appearance: PRESENT: no acute distress, well-developed, well-nourished Head exam: PRESENT: atraumatic, normocephalic Eye exam: PRESENT: conjunctiva pink, EOMI, PERRLA. ABSENT: scleral icterus Ear exam: PRESENT: normal external ear exam Mouth exam: PRESENT: moist, tongue midline Neck exam: ABSENT: carotid bruit, JVD, lymphadenopathy, thyromegaly Respiratory exam: PRESENT: clear to auscultation nikky. ABSENT: rales, rhonchi, wheezes Cardiovascular exam: PRESENT: RRR. ABSENT: diastolic murmur, rubs, systolic murmur Pulses: PRESENT: normal dorsalis pedis pul GI/Abdominal exam: PRESENT: normal bowel sounds, soft. ABSENT: distended, guarding, mass, organolmegaly, rebound, tenderness Rectal exam: PRESENT: deferred Extremities exam: PRESENT: full ROM. ABSENT: calf tenderness, clubbing, pedal edema Neurological exam: PRESENT: alert, awake, oriented to person, oriented to place, oriented to time, oriented to situation, CN II-XII grossly intact. ABSENT: motor sensory deficit Results Laboratory Results: 11/14/18 04:41 11/14/18 04:41 11/13/18 06:36 NT-Pro-B Natriuret Pep 131 Impressions: Chest X-Ray 11/13/18 06:37 IMPRESSION: Mild central edema. Qualifiers - * PATIENT BEING DISCHARGED WITH ANY OF THE FOLLOWING DIAGNOSIS: No Acute Heart Failure Is this a Heart Failure Patient?: No
== END 2018-11-15 11:40 | disposition home or self-care (01) | DRG 190 ==
LOC: ER 06:05 → EH 12:51 → 4N 16:54
PROVIDERS: ADMIT Family Medicine; ATTEND Family Medicine
DX: J44.1 Chronic obstructive pulmonary disease with (acute) exacerbation (principal); J96.01 Acute respiratory failure with hypoxia; G43.909 Migraine, unspecified, not intractable, without status migrainosus; E78.5 Hyperlipidemia, unspecified; F41.9 Anxiety disorder, unspecified; K21.9 Gastro-esophageal reflux disease without esophagitis; Z98.84 Bariatric surgery status; Z90.49 Acquired absence of other specified parts of digestive tract; Z79.899 Other long term (current) drug therapy; E66.01 Morbid (severe) obesity due to excess calories; K59.09 Other constipation; Z87.01 Personal history of pneumonia (recurrent); Z82.49 Family history of ischemic heart disease and other diseases of the circulatory system
CPT/HCPCS: 36415; 71046; 80048; 80053; 82803; 83735; 83880; 85025; 85027; 87040; 93005; 93010; 94640; 96365; 96366; 96375; 99285; J1650; J2930; J3475; J3490; J7620